=== PATIENT | female | born 1940 | race Caucasian/White ===

== ENCOUNTER 2020-05-15 14:37 | Outpatient (REF) | payer MEDICARE, SELFPAY ==
--- NOTE | 2020-05-15 | MM_ITS ---
EXAMINATION: MM SCREENING DIGITAL BREAST TOMOSYNTHESIS, BILATERAL CLINICAL INFORMATION: Screening. Asymptomatic. The lifetime risk of breast cancer based on the Tyrer-Cuzick Model is 3%. COMPARISON: Mammography: 01/07/2019, 12/18/2017, 12/11/2016 TECHNIQUE: Digital breast tomosynthesis is performed in both the craniocaudal and mediolateral oblique views along with computer-aided detection (CAD). Synthesized 2D images are generated from the tomosynthesis. FINDINGS: There are scattered areas of fibroglandular density (ACR BI-RADS breast composition Category b). There are no significant masses, abnormal calcifications, or other abnormalities. Parenchymal pattern is similar to prior studies. No developing density. There are scattered benign round calcifications. The skin contours are smooth. IMPRESSION: No significant changes from prior studies. ASSESSMENT: BI-RADS 1: Negative RECOMMENDATION: Routine annual mammography screening. This patient's information was entered into a reminder system with a target due date for their next mammogram.
== END 2020-05-15 14:38 | disposition home or self-care (01) ==
LOC: HO.MAMMO 14:37
PROVIDERS: PCP Internal Medicine; Visit Provider Internal Medicine
DX: Z12.31 Encounter for screening mammogram for malignant neoplasm of breast (principal)
CPT/HCPCS: 77063; 77067

== ENCOUNTER 2021-04-27 15:18 | Outpatient (REF) | payer MEDICARE, SELFPAY ==
[2021-04-27 16:31] LABS: Thyroid Stimulating Hormone 1.82 uIU/mL (0.32-4.0)
== END 2021-04-27 15:19 | disposition home or self-care (01) ==
LOC: HO.LNP 15:18
PROVIDERS: Visit Provider Internal Medicine
DX: R53.83 Other fatigue (principal)
CPT/HCPCS: 84443

== ENCOUNTER 2021-06-05 10:15 | Outpatient (REF) | payer MEDICARE, SELFPAY ==
[2021-06-05 10:20] LABS: MANUAL DIFF FLAG NO
[2021-06-05 10:58] LABS: Basophils Absolute Auto 0.1 X10*3/uL (0.0-0.2); Basophils Percent Auto 0.8 % (0-2); Eosinophils Absolute Auto 0.4 X10*3/uL (0.0-0.4); Eosinophils Percent Auto 6.1 % (0-4); Hematocrit 44.4 % (37.0-47.0); Hemoglobin 14.6 g/dl (12.0-16.0); Imm Gran Abs Auto 0.02 X10*3/uL (0.00-0.03); Imm Gran Pct Auto 0.3 % (0.0-0.4); Lymphocytes Absolute Auto 1.8 X10*3/uL (1.2-4.9); Mean Corpuscular HGB Conc 32.9 g/dl (31.0-35.0); Mean Corpuscular Volume 88.1 fL (80.0-98.0); Monocytes Absolute Auto 0.5 X10*3/uL (0.1-1.2); Monocytes Percent Auto 8.5 % (2-11); Neutrophils Percent Auto 56.3 % (45-73); Platelet Count 239 X10*3/uL (160-400); Red Blood Count 5.04 X10*6/uL (4.20-5.50); White Blood Count 6.4 X10*3/uL (4.8-10.8)
[2021-06-05 11:24] LABS: Appearance Urine HAZY; Color Urine YELLOW; Glucose Urine UA NEG (NEG); Leukocyte Esterase Urine 3+ (NEG); Nitrite Urine NEG (NEG); PH 6.5 (5.0-8.0); Urine Blood 1+ (NEG); Urine Ketones NEG (NEG); Urine Protein NEG (NEG-TRACE)
[2021-06-05 11:38] LABS: Alanine Aminotransferase 20 U/L (0-31); Albumin Level 4.1 g/dL (3.5-5.0); Alkaline Phosphatase 79 U/L (39-117); Anion Gap 12 (12-20); Aspartate Amino Transferase 27 U/L (5-31); Bilirubin Total 0.7 mg/dL (0.0-1.0); Blood Urea Nitrogen 20 mg/dL (9-16); Calcium 9.7 mg/dL (8.4-10.2); Carbon Dioxide 28 mmol/L (22-29); Chloride 107 mmol/L (96-108); Cholesterol 191 mg/dL; Estimated Glomerular Filt Rate > 60; Glucose Fasting 108 mg/dL (60-99); HDL Cholesterol 49 mg/dL; LDL Cholesterol Calculated 123 mg/dl; Sodium 142 mmol/L (135-145); Total Protein 6.6 g/dL (6.5-8.0); Triglycerides 95 mg/dL
[2021-06-05 11:52] LABS: Reflex LDLD? No
[2021-06-05 12:00] LABS: Renal Epithelial Cells Urine 1+ /LPF; Squamous Epithelial Cell Urine TRACE /LPF
[2021-06-05 12:01] LABS: Bacteria Urine TRACE /LPF; Vitamin D 25-OH Total 34.9 ng/mL (>30)
== END 2021-06-05 10:16 | disposition home or self-care (01) ==
LOC: HO.LNP 10:15
PROVIDERS: Visit Provider Internal Medicine
DX: E78.00 Pure hypercholesterolemia, unspecified (principal); E83.42 Hypomagnesemia; E55.9 Vitamin D deficiency, unspecified; R09.89 Other specified symptoms and signs involving the circulatory and respiratory systems; R79.89 Other specified abnormal findings of blood chemistry
CPT/HCPCS: 80053; 80061; 81001; 81003; 82306; 85025

== ENCOUNTER 2022-05-28 15:22 | Outpatient (REF) | payer MEDICARE, SELFPAY ==
[2022-05-28 15:50] LABS: Appearance Urine Turbid; Color Urine Yellow; Glucose Urine UA Negative (Negative); Leukocyte Esterase Urine Large (3+) (Negative); Nitrite Urine Positive (Negative); Specific Gravity - Urine 1.015 (1.005-1.025); UMIC TRIGGER UA YES; Urine Blood Large (3+) (Negative); Urine Ketones Negative (Negative); Urine Protein Trace mg/dL (Neg-Trace)
[2022-05-28 16:20] LABS: Bacteria Urine 4+ (None Seen); Hyaline Casts Urine 0-2 /LPF (0-2); Squamous Epithelial Cell Urine 0-2 /HPF (0-2); WBC Urine >50 /HPF (0-5)
== END 2022-05-28 15:23 | disposition home or self-care (01) ==
LOC: HO.LNP 15:22
PROVIDERS: Visit Provider Internal Medicine
DX: N30.00 Acute cystitis without hematuria (principal)
CPT/HCPCS: 81001; 87086

== ENCOUNTER 2022-06-11 10:36 | Outpatient (REF) | payer MEDICARE, SELFPAY ==
[2022-06-11 10:41] LABS: MANUAL DIFF FLAG NO
[2022-06-11 12:03] LABS: Basophils Absolute Auto 0.1 X10*3/uL (0.0-0.2); Eosinophils Absolute Auto 0.3 X10*3/uL (0.0-0.4); Eosinophils Percent Auto 4.7 % (0-4); Hematocrit 42.4 % (37.0-47.0); Hemoglobin 13.9 g/dl (12.0-16.0); Imm Gran Abs Auto 0.02 X10*3/uL (0.00-0.03); Imm Gran Pct Auto 0.3 % (0.0-0.4); Lymphocytes Absolute Auto 1.6 X10*3/uL (1.2-4.9); Lymphocytes Percent Auto 27.2 % (20-40); Mean Corpuscular HGB Conc 32.8 g/dl (31.0-35.0); Mean Corpuscular Hemoglobin 28.9 pg (27.0-33.0); Mean Corpuscular Volume 88.1 fL (80.0-98.0); Mean Platelet Volume 11.3 fL (9.4-12.3); Monocytes Absolute Auto 0.4 X10*3/uL (0.1-1.2); Monocytes Percent Auto 5.9 % (2-11); Neutrophils Absolute Auto 3.6 x10*3/uL (2.0-8.3); Neutrophils Percent Auto 60.9 % (45-73); Platelet Count 211 X10*3/uL (160-400); Red Blood Count 4.81 X10*6/uL (4.20-5.50); Red Cell Distribution Width 13.8 % (11.0-16.0); White Blood Count 5.9 X10*3/uL (4.8-10.8)
[2022-06-11 12:12] LABS: Appearance Urine Clear; Color Urine Yellow; Glucose Urine UA Negative (Negative); Leukocyte Esterase Urine Small (1+) (Negative); Nitrite Urine Negative (Negative); UMIC TRIGGER UA YES; Urine Blood Small (1+) (Negative); Urine Ketones Negative (Negative); Urine Protein Negative (Neg-Trace)
[2022-06-11 12:30] LABS: Estimated Average Glucose 126 mg/dL; Hemoglobin A1C 151.8079 umol/L
[2022-06-11 12:33] LABS: Vitamin D 25-OH Total 35.1 ng/mL (>30)
[2022-06-11 12:41] LABS: Alanine Aminotransferase 21 U/L (0-31); Albumin Level 3.9 g/dL (3.5-5.0); Alkaline Phosphatase 84 U/L (39-117); Anion Gap 14 (12-20); Aspartate Amino Transferase 25 U/L (5-31); Bilirubin Total 0.4 mg/dL (0.0-1.0); Blood Urea Nitrogen 18 mg/dL (9-16); Calcium 9.1 mg/dL (8.4-10.2); Carbon Dioxide 25 mmol/L (22-29); Chloride 107 mmol/L (96-108); Cholesterol 181 mg/dL; Estimated Glomerular Filt Rate > 60; Glucose Fasting 93 mg/dL (60-99); HDL Cholesterol 41 mg/dL; LDL Cholesterol Calculated 106 mg/dl; Potassium 3.9 mmol/L (3.3-5.1); Sodium 142 mmol/L (135-145); Total Protein 6.4 g/dL (6.5-8.0); Triglycerides 173 mg/dL
[2022-06-11 12:43] LABS: Bacteria Urine None Seen (None Seen); Hyaline Casts Urine 0-2 /LPF (0-2); RBC Urine 0-2 /HPF (0-2); Squamous Epithelial Cell Urine 0-2 /HPF (0-2); WBC Urine 0-5 /HPF (0-5)
== END 2022-06-11 10:37 | disposition home or self-care (01) ==
LOC: HO.LNP 10:36
PROVIDERS: Visit Provider Internal Medicine
DX: E78.00 Pure hypercholesterolemia, unspecified (principal); E55.9 Vitamin D deficiency, unspecified; E16.2 Hypoglycemia, unspecified; E83.42 Hypomagnesemia
CPT/HCPCS: 80053; 80061; 81001; 82306; 83036; 85025

== ENCOUNTER 2022-06-18 16:07 | Outpatient (REF) | payer MEDICARE, SELFPAY ==
[2022-06-18 16:23] LABS: Appearance Urine Clear; Color Urine Straw; Glucose Urine UA Negative (Negative); Leukocyte Esterase Urine Small (1+) (Negative); Nitrite Urine Negative (Negative); PH 6.5 (5.0-9.0); Specific Gravity - Urine 1.015 (1.005-1.025); UMIC TRIGGER UA YES; Urine Blood Trace (Negative); Urine Ketones Negative (Negative); Urine Protein Negative (Neg-Trace)
[2022-06-18 17:08] LABS: Squamous Epithelial Cell Urine 0-2 /HPF (0-2); WBC Urine 0-5 /HPF (0-5)
[2022-06-18 17:09] LABS: Bacteria Urine None Seen (None Seen); Hyaline Casts Urine 0-2 /LPF (0-2); WBC Clumps Urine Present
== END 2022-06-18 16:08 | disposition home or self-care (01) ==
LOC: HO.LNP 16:07
PROVIDERS: Visit Provider Internal Medicine
DX: Z51.89 Encounter for other specified aftercare (principal); N30.00 Acute cystitis without hematuria
CPT/HCPCS: 81001; 87086

== ENCOUNTER 2022-07-09 11:52 | Outpatient (REF) | payer MEDICARE, SELFPAY ==
--- NOTE | ~2022-07-09 | MM_ITS ---
EXAMINATION: MM SCREENING DIGITAL BREAST TOMOSYNTHESIS, BILATERAL CLINICAL INFORMATION: Screening. Asymptomatic. The lifetime risk of breast cancer based on the Tyrer-Cuzick Model is 2%. COMPARISON: Mammography: 05/15/2020, 01/07/2019, 12/18/2017 TECHNIQUE: Digital breast tomosynthesis is performed in both the craniocaudal and mediolateral oblique views along with computer-aided detection (CAD). Synthesized 2D images are generated from the tomosynthesis. FINDINGS: There are scattered areas of fibroglandular density (ACR BI-RADS breast composition Category b). There are no significant masses, abnormal calcifications, or other abnormalities. No significant changes from prior studies. No developing density or architectural abnormality. Scattered punctate and some coarse calcifications are again noted. MM/MM tomosynthesis screening BI IMPRESSION: No mammographic evidence of malignancy. ASSESSMENT: BI-RADS 2: Benign RECOMMENDATION: Routine annual mammography screening. This patient's information was entered into a reminder system with a target due date for their next mammogram.
== END 2022-07-09 11:53 | disposition home or self-care (01) ==
LOC: HO.MAMMO 11:52
PROVIDERS: Visit Provider Internal Medicine
DX: Z12.31 Encounter for screening mammogram for malignant neoplasm of breast (principal)
CPT/HCPCS: 77063; 77067

== ENCOUNTER 2022-07-12 12:01 | Outpatient (REF) | payer MEDICARE, SELFPAY ==
[2022-07-12 13:05] LABS: Appearance Urine Clear; Color Urine Yellow; Glucose Urine UA Negative (Negative); Leukocyte Esterase Urine Trace (Negative); Nitrite Urine Negative (Negative); PH 5.5 (5.0-9.0); Specific Gravity - Urine 1.015 (1.005-1.025); UMIC TRIGGER UA YES; Urine Blood Small (1+) (Negative); Urine Ketones Negative (Negative); Urine Protein Negative (Neg-Trace)
[2022-07-12 13:14] LABS: Bacteria Urine None Seen (None Seen); Hyaline Casts Urine 0-2 /LPF (0-2); Squamous Epithelial Cell Urine 0-2 /HPF (0-2); WBC Urine 0-5 /HPF (0-5)
== END 2022-07-12 12:02 | disposition home or self-care (01) ==
LOC: HO.LNP 12:01
PROVIDERS: Visit Provider Internal Medicine
DX: Z87.448 Personal history of other diseases of urinary system (principal)
CPT/HCPCS: 81001

== ENCOUNTER 2022-08-20 11:00 | Outpatient (REF) | payer MEDICARE, SELFPAY ==
[2022-08-20 11:28] LABS: Appearance Urine Clear; Color Urine Yellow; Glucose Urine UA Negative (Negative); Leukocyte Esterase Urine Small (1+) (Negative); Nitrite Urine Negative (Negative); PH 5.5 (5.0-9.0); Specific Gravity - Urine 1.015 (1.005-1.025); UMIC TRIGGER UACC YES; Urine Blood Small (1+) (Negative); Urine Ketones Negative (Negative); Urine Protein Negative (Neg-Trace)
[2022-08-20 11:45] LABS: Bacteria Urine None Seen (None Seen); Hyaline Casts Urine 0-2 /LPF (0-2); RBC Urine 0-2 /HPF (0-2); Squamous Epithelial Cell Urine 0-2 /HPF (0-2); UACC Culture Trigger YES; WBC Urine 0-5 /HPF (0-5)
== END 2022-08-20 11:01 | disposition home or self-care (01) ==
LOC: HO.LNP 11:00
PROVIDERS: Visit Provider Internal Medicine
DX: R31.9 Hematuria, unspecified (principal)
CPT/HCPCS: 81001; 87086

== ENCOUNTER 2022-11-25 06:21 | Day surgery (SDC) | payer MEDICARE, SELFPAY ==
[2022-11-20 14:52] VITALS: BMI 23.3
--- NOTE | 2022-11-21 15:48 | MHC.SHP ---
Pre-Procedural Eval Section A Date of Service: 11/21/22 The patient is an INPATIENT: No Changes since office visit: No Cold of Flu in the past 2 weeks, No New Medical Problems, No Changes in Medication and No Patient answered all questions The History & Physical has been completed within 30 days and I have reviewed it.: Yes Section B Chief Complaint: Age-related nuclear cataract, left eye Allergies: Allergies Allergy/AdvReac Type Severity Reaction Status Date / Time sulfamethoxazole AdvReac Severe Nausea and Verified 11/20/22 14:56 [From Bactrim] Vomiting trimethoprim [From Bactrim] AdvReac Severe Nausea and Verified 11/20/22 14:56 Vomiting shellfish Allergy Severe anaphylaxis Uncoded 11/20/22 14:56 Plan Diagnosis/Plan: Unchanged I have reviewed the history and physical and performed a pertinent physical examination on my patient. No changes have occurred unless specified. Time Spent With Patient Time: Total time managing care of this patient today ____ minutes.
[2022-11-25] MEDS: Tetracaine HCl/PF 0.5% Oph Sol 4 ML DROPS 1 DROP EYE-LEFT (06:59)
[2022-11-25] MEDS: Cyclopentolate 1 % Ophth Sol 2 ML DRPBTL 1 DROP EYE-LEFT ×3 (07:02→07:14)
[2022-11-25] MEDS: Tropicamide 1 % Ophth Sol 3 ML BTL 1 DROP EYE-LEFT ×3 (07:03→07:15)
[2022-11-25] MEDS: Ketorolac Tromethamine 0.5% Op 5 ML DROPS 1 DROP EYE-LEFT ×3 (07:05→07:16)
[2022-11-25] MEDS: Phenylephrine HCL 2.5% Oph SoL 2 ML BOTTLE 1 DROP EYE-LEFT ×3 (07:06→07:17)
[2022-11-25] MEDS: Lactated Ringers 500 ML 50 ML IV (07:09)
[2022-11-25 07:12] VITALS: BP 151/70; PULSE 68; RESP 16; TEMP 36.4; O2SAT 98
--- NOTE | 2022-11-25 07:48 | P.CONAN_ITS ---
HPI - Anesthesia Eval Consult details Narrative: Left eye cataract + IOL PMFSH Past Medical History Medical History Anxiety Cataract Essential tremor Hx of weakness Seasonal allergies Family History Family history of problems with anesthesia: No Surgical History Surgical History Hx of colonoscopy History of Problems with Anesthesia: No Social History Social History Are you a primary healthcare administrative assistant to a significant other at home: No Do you presently have visiting nurse or other home services: No Patient Tobacco Use Status: Never used Tobacco Use of substances other than those prescribed or required for medical reasons: No Have you been hit, kicked, punched, or otherwise hurt by someone within the past year? If so, by whom?: No Are you DNR?: No Advance Directives: No Advance Directives Information Provided: Yes Advance Directives on File: No Recently lost weight without trying: No Nutrition Risks: Surgical patient >75years Meds Allergies Allergy/AdvReac Type Severity Reaction Status Date / Time sulfamethoxazole AdvReac Severe Nausea and Verified 11/25/22 07:19 [From Bactrim] Vomiting trimethoprim [From Bactrim] AdvReac Severe Nausea and Verified 11/25/22 07:19 Vomiting shellfish Allergy Severe anaphylaxis Uncoded 11/20/22 14:56 Active Medications: Current Medications Lactated Ringer's (Lr) 500 mls @ 50 mls/hr IV .Q10H EVY Stop: 11/25/22 16:44 Last Admin: 11/25/22 07:09 Dose: 50 mls/hr Povidone Iodine (Povidone Iodine 5 % Ophth Soln 30 Ml Bottle) 1 appl EYE-LEFT PREOP PRN PRN Reason: Pre-Op Surgical Implant Prophy Home Medications Medication Instructions Recorded Confirmed Last Taken Type rdoxqbe-bchtaedsqhwcn-yseinivu 250 1 tab PO Q4-6H PRN Headache 11/20/22 11/20/22 Unknown History mg-250 mg-65 mg tablet (Excedrin Extra Strength) atorvastatin 20 mg tablet 10 mg PO DAILY 11/20/22 11/20/22 Unknown History cetirizine 10 mg capsule (Zyrtec) 10 mg PO DAILY PRN Allergy Symptoms 11/20/22 11/20/22 11/25/22 04:30 History diphenoxylate-atropine 2.5 1 tab PO BEDTIME PRN Diarrhea 11/20/22 11/20/22 Unknown History mg-0.025 mg tablet (Lomotil) ibuprofen 400 mg tablet 400 mg PO Q8H PRN Pain 11/20/22 11/20/22 Unknown History lorazepam 0.5 mg tablet 0.5 mg PO DAILY PRN Anxiety 11/20/22 11/20/22 Unknown History propranolol 60 mg capsule,24 60 mg PO DAILY 11/20/22 11/20/22 Unknown History hr,extended release Exam Exam Date and Time: November 25, 2022 0748 Height,Weight and Vital Signs: Height 5 ft 2 in Weight 58.06 kg Last Vital Signs Temp 97.5 F 11/25/22 07:12 Pulse 68 11/25/22 07:12 Resp 16 11/25/22 07:12 BP 151/70 H 11/25/22 07:12 Pulse Ox 98 11/25/22 07:12 O2 Del Method Room Air 11/25/22 07:12 Airway Mallampati Class: II TM Dist: >3cm Neck ROM: Full Loose/Missing/Broken Teeth: No Heart: rrr+s1s2 Lungs: cta b/l Assessment and Plan Assessment Anesthesia Assessment: Anesthesia Plan Discussed and Chart Reviewed Final Anesthetic Review Family History of Problems with Anesthesia: No History of Problems with Anesthesia: No NPO: Yes ASA Class: II Final Preanesthetic Review: No Changes in Pt Med Stat, Meds/Allgs Chart Reviewed, Consent Obtained/Reviewed and Anes Risks/Benef Reviewed Patient Risk: Intermediate Procedure Risk: Low Assessment/Block/Sedation in SS: Assess/Block/Sedation-SS Anesthetic Plan Anesthetic Plan: MAC: and Agree w/ Assess. and Plan Disposition: Standard PACU
--- NOTE | 2022-11-25 08:13 | HO.PNOPHT ---
Ophthalmology Procedure Procedure Date of Service: 11/25/22 Ophthalmology Viscoelastic: Healmayte Duet Dual Pack Pro Ophthalmology Lenses: TECJJ [id number] (19) Procedure Notes: PREOPERATIVE DIAGNOSIS: Decreased visual acuity left eye secondary to cataract POSTOPERATIVE DIAGNOSIS: Same PROCEDURE: Left cataract extraction with intraocular lens insertion SURGEON: Malcom Contreras M.D. ANESTHESIA: Topical/MAC ESTIMATED BLOOD LOSS: None COMPLICATIONS: None After obtaining informed consent, the patient was brought to the operation room suite and placed in the supine position. After adequate sedation per anesthesia, topical drops of Tetracaine were given to the left eye. The eye was then prepped and draped in the usual sterile fashion. The operating room microscope was then positioned over the operative eye and a lid speculum placed. A paracentesis was created. Viscoelastic was then instilled into the anterior chamber. A three plane incision was then created temporally, utilizing a 2.85 mm keratome. Capsulotomy forceps were then utilized to create a circular tear capsulotomy. Hydrodissection and hydrodelineation were carried out until adequate mobilization of the nucleus occurred. Phacoemulsification was then utilized to remove the dense central nucleus followed by removal of the cortical material utilizing the automated aspiration irrigation unit. Viscoat elastic was instilled into the posterior capsular bag followed by placement of a posterior chamber intraocular lens without difficulty. The residual Viscoat elastic was then removed utilizing the automated IA machine. The wound was check and found to be watertight. The patient tolerated the procedure well and the lid speculum was removed. Intracameral injection of Vigamox 0.1 mL followed by a subtenon injection of Kenalog-40 0.2 mL were administered. The patient will be seen in the a.m.
[2022-11-25 08:35] VITALS: BP 150/71; PULSE 62; RESP 16; TEMP 36.8; O2SAT 100
== END 2022-11-25 08:53 | disposition home or self-care (01) ==
PROVIDERS: PCP Internal Medicine; Visit Provider Ophthalmology
PROC: (CPT 66985; principal; 2022-11-25 08:20)
DX: H25.12 Age-related nuclear cataract, left eye (principal); H52.4 Presbyopia; H18.413 Arcus senilis, bilateral; H11.153 Pinguecula, bilateral; G25.0 Essential tremor; F41.9 Anxiety disorder, unspecified; E78.00 Pure hypercholesterolemia, unspecified; J30.2 Other seasonal allergic rhinitis; Z79.1 Long term (current) use of non-steroidal anti-inflammatories (NSAID); Z79.51 Long term (current) use of inhaled steroids; Z79.899 Other long term (current) drug therapy; Z88.2 Allergy status to sulfonamides
CPT/HCPCS: 66984; J2250; J3301; V2632

== ENCOUNTER 2022-12-09 07:10 | Day surgery (SDC) | payer MEDICARE, SELFPAY ==
[2022-11-20 15:02] VITALS: BMI 23.3
--- NOTE | 2022-12-06 12:56 | MHC.SHP ---
Pre-Procedural Eval Section A Date of Service: 12/06/22 The patient is an INPATIENT: No Changes since office visit: No Cold of Flu in the past 2 weeks, No New Medical Problems, No Changes in Medication and No Patient answered all questions The History & Physical has been completed within 30 days and I have reviewed it.: Yes Section B Chief Complaint: Age-related nuclear cataract, right eye Allergies: Allergies Allergy/AdvReac Type Severity Reaction Status Date / Time sulfamethoxazole AdvReac Severe Nausea and Verified 11/25/22 07:19 [From Bactrim] Vomiting trimethoprim [From Bactrim] AdvReac Severe Nausea and Verified 11/25/22 07:19 Vomiting shellfish Allergy Severe anaphylaxis Uncoded 11/20/22 14:56 Plan Diagnosis/Plan: Unchanged I have reviewed the history and physical and performed a pertinent physical examination on my patient. No changes have occurred unless specified. Time Spent With Patient Time: Total time managing care of this patient today ____ minutes.
[2022-12-09 08:04] VITALS: BP 143/76; PULSE 58; RESP 18; TEMP 36.7; O2SAT 100; BMI 23.4
--- NOTE | 2022-12-09 08:06 | P.CONAN_ITS ---
[facility] Past Medical History Medical History Anxiety Cataract Essential tremor Hx of weakness Seasonal allergies Family History Family history of problems with anesthesia: No Surgical History Surgical History Hx of colonoscopy History of Problems with Anesthesia: No Social History Social History Are you a primary health care liaison to a significant other at home: No Do you presently have visiting nurse or other home services: No Patient Tobacco Use Status: Never used Tobacco Use of substances other than those prescribed or required for medical reasons: No Have you been hit, kicked, punched, or otherwise hurt by someone within the past year? If so, by whom?: No Are you DNR?: No Advance Directives: No Advance Directives Information Provided: Yes Advance Directives on File: No Recently lost weight without trying: No Nutrition Risks: Surgical patient >75years Meds Allergies Allergy/AdvReac Type Severity Reaction Status Date / Time sulfamethoxazole AdvReac Severe Nausea and Verified 11/25/22 07:19 [From Bactrim] Vomiting trimethoprim [From Bactrim] AdvReac Severe Nausea and Verified 11/25/22 07:19 Vomiting shellfish Allergy Severe anaphylaxis Uncoded 11/20/22 14:56 Active Medications: Current Medications Cyclopentolate HCl (Cyclopentolate 1 % Ophth Tori 2 Ml Drpbtl) 1 drop EYE-RIGHT Q5M EVY Stop: 12/09/22 08:11 Lactated Ringer's (Lr) 500 mls @ 50 mls/hr IV .Q10H EVY Stop: 12/09/22 17:59 Ketorolac Tromethamine (Ketorolac Tromethamine 0.5% Op 5 Ml Drops) 1 drop EYE- RIGHT Q5M EVY Stop: 12/09/22 08:11 Phenylephrine HCl (Phenylephrine Hcl 2.5% Oph Tori 2 Ml Bottle) 1 drop EYE-RIGHT Q5M EVY Stop: 12/09/22 08:11 Povidone Iodine (Povidone Iodine 5 % Ophth Soln 30 Ml Bottle) 1 appl EYE-RIGHT PREOP PRN PRN Reason: Pre-Op Surgical Implant Prophy Tropicamide (Tropicamide 1 % Ophth Tori 3 Ml Btl) 1 drop EYE-RIGHT Q5M EVY Stop: 12/09/22 08:11 Home Medications Medication Instructions Recorded Confirmed Last Taken Type urvxzjt-gfrzoqhbhlhnw-lefgohlp 250 1 tab PO Q4-6H PRN Headache 11/20/22 12/09/22 Unknown History mg-250 mg-65 mg tablet (Excedrin Extra Strength) atorvastatin 20 mg tablet 10 mg PO DAILY 11/20/22 12/09/22 Unknown History cetirizine 10 mg capsule (Zyrtec) 10 mg PO DAILY PRN Allergy Symptoms 11/20/22 12/09/22 11/25/22 04:30 History diphenoxylate-atropine 2.5 1 tab PO BEDTIME PRN Diarrhea 11/20/22 12/09/22 Unknown History mg-0.025 mg tablet (Lomotil) ibuprofen 400 mg tablet 400 mg PO Q8H PRN Pain 11/20/22 12/09/22 Unknown History lorazepam 0.5 mg tablet 0.5 mg PO DAILY PRN Anxiety 11/20/22 12/09/22 Unknown History Exam Exam Date and Time: December 09, 2022 08 Height,Weight and Vital Signs: Height 5 ft 2 in Weight 58.06 kg Airway Mallampati Class: II TM Dist: >3cm Neck ROM: Full Loose/Missing/Broken Teeth: No Heart: RRR Lungs: CTA Assessment and Plan Assessment Anesthesia Assessment: Anesthesia Plan Discussed Final Anesthetic Review Family History of Problems with Anesthesia: No History of Problems with Anesthesia: No NPO: Yes ASA Class: II Final Preanesthetic Review: Meds/Allgs Chart Reviewed, Consent Obtained/Reviewed and Anes Risks/Benef Reviewed Patient Risk: Low Procedure Risk: Low Anesthetic Plan Anesthetic Plan: MAC: Disposition: Standard PACU
[2022-12-09 08:22] VITALS: BP 143/76; PULSE 57; RESP 18; TEMP 36.7; O2SAT 100
[2022-12-09] MEDS: Cyclopentolate 1 % Ophth Sol 2 ML DRPBTL 1 DROP EYE-RIGHT ×3 (08:23→08:29)
[2022-12-09] MEDS: Tetracaine HCl/PF 0.5% Oph Sol 4 ML DROPS 1 DROP EYE-RIGHT (08:23)
[2022-12-09] MEDS: Ketorolac Tromethamine 0.5% Op 5 ML DROPS 1 DROP EYE-RIGHT ×3 (08:24→08:30)
[2022-12-09] MEDS: Tropicamide 1 % Ophth Sol 3 ML BTL 1 DROP EYE-RIGHT ×3 (08:24→08:30)
[2022-12-09] MEDS: Phenylephrine HCL 2.5% Oph SoL 2 ML BOTTLE 1 DROP EYE-RIGHT ×3 (08:24→08:30)
[2022-12-09] MEDS: Lactated Ringers 500 ML 50 ML IV (08:32)
--- NOTE | 2022-12-09 09:23 | HO.PNOPHT ---
Ophthalmology Procedure Procedure Date of Service: 12/09/22 Ophthalmology Viscoelastic: Xander Mayt Dual Pack Pro Ophthalmology Lenses: TECJJ [id number] (21) Procedure Notes: PREOPERATIVE DIAGNOSIS: Decreased visual acuity right eye secondary to cataract POSTOPERATIVE DIAGNOSIS: Same PROCEDURE: Right cataract extraction with intraocular lens insertion SURGEON: Malcom Contreras M.D. ANESTHESIA: Topical/MAC ESTIMATED BLOOD LOSS: None COMPLICATIONS: None After obtaining informed consent, the patient was brought to the operating room suite and placed in the supine position. After adequate sedation per anesthesia, topical drops of Tetracaine were given to the right eye. The eye was then prepped and draped in the usual sterile fashion. The operating room microscope was then positioned over the operative eye and a lid speculum placed. A paracentesis was created. Viscoelastic was then instilled into the anterior chamber. A three plane incision was then created temporally, utilizing a 2.85 mm keratome. Capsulotomy forceps were then utilized to create a circular tear capsulotomy. Hydrodissection and hydrodelineation were carried out until adequate mobilization of the nucleus occurred. Phacoemulsification was then utilized to remove the dense central nucleus followed by removal of the cortical material utilizing the automated aspiration irrigation unit. Viscoelastic was instilled into the posterior capsular bag followed by placement of a posterior chamber intraocular lens without difficulty. The residual Viscoelastic was then removed utilizing the automated IA machine. The wound was checked and found to be watertight. The patient tolerated the procedure well and the lid speculum was removed. Intracameral injection of Vigamox 0.1 mL followed by a subtenon injection of Kenalog-40 0.2 mL were administered. The patient will be seen in the a.m.
[2022-12-09 09:49] VITALS: BP 137/64; PULSE 59; RESP 16; TEMP 36.6; O2SAT 99
== END 2022-12-09 09:58 | disposition home or self-care (01) ==
PROVIDERS: PCP Internal Medicine; Visit Provider Ophthalmology
PROC: (CPT 66985; principal; 2022-12-09 09:20)
DX: H25.11 Age-related nuclear cataract, right eye (principal); H52.4 Presbyopia; Z83.511 Family history of glaucoma; H18.413 Arcus senilis, bilateral; H11.153 Pinguecula, bilateral; G25.0 Essential tremor; E78.00 Pure hypercholesterolemia, unspecified; J30.2 Other seasonal allergic rhinitis; Z77.22 Contact with and (suspected) exposure to environmental tobacco smoke (acute) (chronic); F41.1 Generalized anxiety disorder; Z79.82 Long term (current) use of aspirin; Z79.899 Other long term (current) drug therapy; Z79.1 Long term (current) use of non-steroidal anti-inflammatories (NSAID); Z88.2 Allergy status to sulfonamides
CPT/HCPCS: 66984; J2250; J3301; V2632

== ENCOUNTER 2023-06-17 11:39 | Outpatient (REF) | payer MEDICARE, SELFPAY ==
[2023-06-17 11:42] LABS: MANUAL DIFF FLAG NO
[2023-06-17 12:16] LABS: Appearance Urine Clear; Color Urine Yellow; Glucose Urine UA Negative (Negative); Leukocyte Esterase Urine Trace (Negative); Nitrite Urine Negative (Negative); UMIC TRIGGER UACC YES; Urine Blood Negative (Negative); Urine Ketones Negative (Negative); Urine Protein Negative (Neg-Trace)
[2023-06-17 12:19] LABS: Basophils Absolute Auto 0.1 X10*3/uL (0.0-0.2); Basophils Percent Auto 0.7 % (0-2); Eosinophils Absolute Auto 0.3 X10*3/uL (0.0-0.4); Eosinophils Percent Auto 3.9 % (0-4); Hematocrit 43.8 % (37.0-47.0); Hemoglobin 14.5 g/dl (12.0-16.0); Imm Gran Abs Auto 0.02 X10*3/uL (0.00-0.03); Imm Gran Pct Auto 0.3 % (0.0-0.4); Lymphocytes Absolute Auto 1.7 X10*3/uL (1.2-4.9); Lymphocytes Percent Auto 24.8 % (20-40); Mean Corpuscular HGB Conc 33.1 g/dl (31.0-35.0); Mean Corpuscular Hemoglobin 28.8 pg (27.0-33.0); Mean Corpuscular Volume 86.9 fL (80.0-98.0); Mean Platelet Volume 11.8 fL (9.4-12.3); Monocytes Absolute Auto 0.5 X10*3/uL (0.1-1.2); Monocytes Percent Auto 7.3 % (2-11); Neutrophils Absolute Auto 4.2 x10*3/uL (2.0-8.3); Platelet Count 230 X10*3/uL (160-400); Red Blood Count 5.04 X10*6/uL (4.20-5.50); Red Cell Distribution Width 14.6 % (11.0-16.0); White Blood Count 6.7 X10*3/uL (4.8-10.8)
[2023-06-17 12:22] LABS: Bacteria Urine None Seen (None Seen); Hyaline Casts Urine 0-2 /LPF (0-2); RBC Urine 0-2 /HPF (0-2); Squamous Epithelial Cell Urine 0-2 /HPF (0-2); WBC Urine 0-5 /HPF (0-5)
[2023-06-17 12:43] LABS: Alanine Aminotransferase 15 U/L (0-31); Albumin Level 4.1 g/dL (3.5-5.0); Alkaline Phosphatase 78 U/L (39-117); Anion Gap 9 (12-20); Aspartate Amino Transferase 24 U/L (5-31); Bilirubin Total 0.8 mg/dL (0.0-1.0); Blood Urea Nitrogen 19 mg/dL (9-16); Calcium 9.8 mg/dL (8.4-10.2); Carbon Dioxide 28 mmol/L (22-29); Chloride 107 mmol/L (96-108); Cholesterol 184 mg/dL (<200); Estimated Glomerular Filt Rate > 60; Glucose Fasting 102 mg/dL (60-99); HDL Cholesterol 53 mg/dL (>40); LDL Cholesterol Calculated 112 mg/dL (<100); Potassium 3.7 mmol/L (3.3-5.1); Sodium 140 mmol/L (135-145); Total Protein 6.9 g/dL (6.5-8.0); Triglycerides 96 mg/dL (<150)
[2023-06-17 12:48] LABS: Vitamin D 25-OH Total 36.1 ng/mL (>30)
== END 2023-06-17 11:40 | disposition home or self-care (01) ==
LOC: HO.LNP 11:39
PROVIDERS: Visit Provider Internal Medicine
DX: E78.00 Pure hypercholesterolemia, unspecified (principal); E55.9 Vitamin D deficiency, unspecified
CPT/HCPCS: 80053; 80061; 81001; 81003; 82306; 85025

== ENCOUNTER 2023-09-12 12:50 | Outpatient (REF) | payer MEDICARE, SELFPAY ==
--- NOTE | ~2023-09-12 | MM_ITS ---
EXAMINATION: BONE DENSITOMETRY CLINICAL INDICATION: Osteopenia. COMPARISON: Previous BD dated 12/18/2017 and baseline BD dated 05/16/2015. TECHNIQUE: Using a [employer] DXA System (software version: 13.1) manufactured by [employer], dual-energy x-ray absorptiometry was performed of the lumbar spine and left hip. The images are of good technical quality. Summary results are attached. FINDINGS: LEFT FEMUR, NECK: Current: BMD 0.744 g/cm2, Z-score 0.2, T-score -2.1, osteopenia. Prior: BMD 0.797 g/cm2. Baseline: BMD 0.821 g/cm2. LEFT FEMUR, TOTAL: Current: BMD 0.866 g/cm2, Z-score 1.1, T-score -1.1, osteopenia, 3.9% decrease from previous, 4.9% decrease from baseline (<5% change is not significant). Prior: BMD 0.901 g/cm2. Baseline: BMD 0.911 g/cm2. AP SPINE L1-L4 (excluding L3): The data of L1-L4 has been changed to exclude the L3 vertebral body, because degenerative sclerosis at this level may cause overestimation of lumbar spine density. Current: BMD 0.961 g/cm2, Z-score 0.3, T-score -1.7, osteopenia, 8.0% decrease from previous, 2.2% decrease from baseline (<5% change is not significant). Prior: BMD 1.045 g/cm2. Baseline: BMD 0.983 g/cm2. IDENTIFIED RISK FACTORS: Menopause. HISTORY OF FRACTURE: None listed. MEDICATIONS: None listed. MM/XR DEXA axial skeleton IMPRESSION: 1. DIAGNOSIS: Osteopenia based on the lowest T-score value of -2.1 in the femoral neck applying World Health Organization criteria. 2. 10-YEAR FRACTURE RISK PREDICTION, FRAX: Major osteoporotic fracture (clinical spine, forearm, hip or shoulder) 16.4%. Hip fracture 5.3%. 3. Treatment Recommendations: NOF guidelines recommend consideration for treatment in postmenopausal women and men age 50 and older presenting with the following: -A hip or vertebral (clinical or morphometric) fracture. -T-score less than or equal to -2.5 at the femoral neck or spine after appropriate evaluation to exclude secondary causes. -Low bone mass at the hip or spine and a 10-year fracture probability by FRAX of greater than or equal to 3% for hip fracture or greater than or equal to 20% for major osteoporotic fracture based on the [place] adapted WHO algorithm. 4. Other Recommendations: All treatment decisions require clinical judgment and consideration of individual patient factors, including patient preferences, comorbidities, previous drug use, risk factors not captured in the FRAX model (e.g. frailty, falls, vitamin D deficiency, increased bone turnover, interval significant decline in bone density) and possible under or overestimation of fracture risk by FRAX. Additional medical evaluation for secondary cause of low bone mineral density may be appropriate. FUTURE SCAN RECOMMENDATION: People with diagnosed cases of osteoporosis or at high risk for fracture should have regular bone mineral density tests. For patients eligible for Medicare, routine testing is allowed once every 2 years. The testing frequency can be increased to one year for patients who have rapidly progressing disease, those who are receiving or discontinuing medical therapy to restore bone mass, or have additional risk factors.
== END 2023-09-12 12:51 | disposition home or self-care (01) ==
LOC: HO.MAMMO 12:50
PROVIDERS: PCP Internal Medicine; Visit Provider Internal Medicine
DX: Z12.31 Encounter for screening mammogram for malignant neoplasm of breast (principal); Z13.820 Encounter for screening for osteoporosis; Z78.0 Asymptomatic menopausal state; M85.80 Other specified disorders of bone density and structure, unspecified site
CPT/HCPCS: 77063; 77067; 77080

== ENCOUNTER → 2023-09-12 13:30 | Outpatient (BNV) | payer MEDICARE, SELFPAY | PROVIDERS: PCP Internal Medicine; Visit Provider Radiology Diagnostic Radiology | DX: Z12.31 Encounter for screening mammogram for malignant neoplasm of breast (principal) | CPT/HCPCS: 77063; 77067 ==

== ENCOUNTER 2023-12-22 11:06 | Outpatient (REF) | payer MEDICARE, SELFPAY ==
[2023-12-22 11:39] LABS: Alanine Aminotransferase 21 U/L (0-31); Albumin Level 4.3 g/dL (3.5-5.0); Alkaline Phosphatase 93 U/L (39-117); Aspartate Amino Transferase 26 U/L (5-31); Bilirubin Direct 0.3 mg/dL (0.0-0.5); Bilirubin Total 0.9 mg/dL (0.0-1.0); Cholesterol 197 mg/dL (<200); HDL Cholesterol 53 mg/dL (>40); LDL Cholesterol Calculated 125 mg/dL (<100); Total Protein 6.8 g/dL (6.5-8.0); Triglycerides 95 mg/dL (<150)
== END 2023-12-22 11:07 | disposition home or self-care (01) ==
LOC: HO.LNP 11:06
PROVIDERS: Visit Provider Internal Medicine
DX: E78.00 Pure hypercholesterolemia, unspecified (principal)
CPT/HCPCS: 80061; 80076

== ENCOUNTER 2024-05-24 13:15 | Outpatient (REF) | payer MEDICARE, SELFPAY ==
[2024-05-24 13:51] LABS: Appearance Urine Turbid; Color Urine Yellow; Glucose Urine UA Negative (Negative); Leukocyte Esterase Urine Large (3+) (Negative); Nitrite Urine Positive (Negative); PH 5.5 (5.0-9.0); Specific Gravity - Urine 1.015 (1.005-1.025); UMIC TRIGGER UACC YES; Urine Blood Large (3+) (Negative); Urine Ketones Negative (Negative); Urine Protein 30 (1+) mg/dL (Neg-Trace)
[2024-05-24 13:57] LABS: Bacteria Urine 4+ (None Seen); Hyaline Casts Urine 0-2 /LPF (0-2); RBC Urine >20 /HPF (0-2); UACC Culture Trigger YES; WBC Urine >50 /HPF (0-5)
== END 2024-05-24 13:16 | disposition home or self-care (01) ==
LOC: HO.LNP 13:15
PROVIDERS: Visit Provider Internal Medicine
DX: N39.0 Urinary tract infection, site not specified (principal)
CPT/HCPCS: 81001; 87086; 87088; 87186

== ENCOUNTER 2024-06-21 11:02 | Outpatient (REF) | payer MEDICARE, SELFPAY ==
[2024-06-21 11:06] LABS: MANUAL DIFF FLAG NO
[2024-06-21 11:12] LABS: Basophils Absolute Auto 0.1 X10*3/uL (0.0-0.2); Basophils Percent Auto 0.8 % (0-2); Eosinophils Absolute Auto 0.3 X10*3/uL (0.0-0.4); Hematocrit 45.4 % (37.0-47.0); Hemoglobin 14.7 g/dl (12.0-16.0); Imm Gran Abs Auto 0.01 X10*3/uL (0.00-0.03); Imm Gran Pct Auto 0.2 % (0.0-0.4); Lymphocytes Absolute Auto 2.1 X10*3/uL (1.2-4.9); Lymphocytes Percent Auto 31.7 % (20-40); Mean Corpuscular HGB Conc 32.4 g/dl (31.0-35.0); Mean Corpuscular Hemoglobin 28.7 pg (27.0-33.0); Mean Corpuscular Volume 88.7 fL (80.0-98.0); Mean Platelet Volume 11.8 fL (9.4-12.3); Monocytes Absolute Auto 0.5 X10*3/uL (0.1-1.2); Monocytes Percent Auto 7.9 % (2-11); Neutrophils Absolute Auto 3.5 x10*3/uL (2.0-8.3); Neutrophils Percent Auto 54.4 % (45-73); Platelet Count 231 X10*3/uL (160-400); Red Blood Count 5.12 X10*6/uL (4.20-5.50); Red Cell Distribution Width 14.6 % (11.0-16.0); White Blood Count 6.5 X10*3/uL (4.8-10.8)
[2024-06-21 11:13] LABS: Appearance Urine Clear; Color Urine Yellow; Glucose Urine UA Negative (Negative); Leukocyte Esterase Urine Small (1+) (Negative); Nitrite Urine Negative (Negative); PH 5.5 (5.0-9.0); UMIC TRIGGER UACC YES; Urine Blood Small (1+) (Negative); Urine Ketones Negative (Negative); Urine Protein Negative (Neg-Trace)
[2024-06-21 11:20] LABS: Bacteria Urine None Seen (None Seen); Hyaline Casts Urine 0-2 /LPF (0-2); Squamous Epithelial Cell Urine 0-2 /HPF (0-2); UACC Culture Trigger YES; WBC Urine 0-5 /HPF (0-5)
[2024-06-21 11:37] LABS: Alanine Aminotransferase 27 U/L (0-31); Alkaline Phosphatase 85 U/L (39-117); Anion Gap 10 (12-20); Aspartate Amino Transferase 31 U/L (5-31); Bilirubin Total 0.7 mg/dL (0.0-1.0); Blood Urea Nitrogen 28 mg/dL (9-16); Calcium 9.9 mg/dL (8.4-10.2); Carbon Dioxide 29 mmol/L (22-29); Chloride 109 mmol/L (96-108); Cholesterol 206 mg/dL (<200); Estimated Glomerular Filt Rate > 60; Glucose Fasting 112 mg/dL (60-99); HDL Cholesterol 55 mg/dL (>40); LDL Cholesterol Calculated 136 mg/dL (<100); Potassium 4.5 mmol/L (3.3-5.1); Sodium 143 mmol/L (135-145); Total Protein 6.8 g/dL (6.5-8.0); Triglycerides 78 mg/dL (<150)
[2024-06-21 11:54] LABS: Vitamin D 25-OH Total 33.8 ng/mL (>30)
== END 2024-06-21 11:03 | disposition home or self-care (01) ==
LOC: HO.LNP 11:02
PROVIDERS: Visit Provider Internal Medicine
DX: E78.00 Pure hypercholesterolemia, unspecified (principal); E55.9 Vitamin D deficiency, unspecified; E78.2 Mixed hyperlipidemia
CPT/HCPCS: 80053; 80061; 81001; 82306; 85025; 87086

== ENCOUNTER 2024-07-30 15:08 | Outpatient (REF) | payer MEDICARE, SELFPAY ==
--- OUTSIDE RECORDS SUMMARY | 2024-07-30 15:10 | XMS_ITS ---
Author Organization Mushtaq Katz MD Address [address] [place] [phone] Care Team Providers Care Piano Professor Name Role Phone Mushtaq Katz Primary Care Provider REASON FOR VISIT BUN, CREATININE Encounters Encounter Location Date Provider Diagnosis Mushtaq Katz MD [address] [facility] [address] [place] [phone] 07/30/2024 Mushtaq Katz Anxiety F41.9 ASSESSMENTS Encounter Date Diagnosis Assessment Notes Treatment Notes Treatment Clinical Notes 07/30/2024 Anxiety (ICD-10 - F41.9) PLAN OF TREATMENT Pending Test Test Name Order Date Blood Urea Nitrogen 07/30/2024 Creatinine 07/30/2024 Next Appt Details Provider Name:Mushtaq jimenez, 11/30/2024 09:00:00 AM, [address] [place] [address], [address], [phone], Provider Name:Mushtaq jimenez, 12/06/2024 11:00:00 AM, [address] [place] [address], [address], [phone], Provider Name:Mushtaq jimenez, 06/27/2025 09:00:00 AM, [address] [facility], [address], [place], [phone], Provider Name:Mushtaq jimenez, 07/04/2025 01:00:00 PM, [address] [facility], [address], [place], [phone],
--- OUTSIDE RECORDS SUMMARY | 2024-07-30 15:10 | XMS_ITS ---
Author Organization Mushtaq Katz MD Address [address] [place], [place] [phone] Care Team Providers Care Mine Supervisor Name Role Phone Mushtaq Katz Primary Care Provider REASON FOR VISIT CHOLESTEROL MED MEDICATIONS Medication SIG (Take, Route, Frequency, Duration) Notes Start Date End Date Status Excedrin Extra Strength 250-250-65 MG 2 tablets Orally Once a day for 30 day(s) Not-Taking Vitamin D3 400 UNIT 1 tablet Orally Once a day for 30 day(s) Not-Taking ProAir RespiClick 108 (90 Base) MCG/ACT 1 puff as needed Inhalation every 4 hrs for 30 days 08/27/2016 Not-Taking Vitamin D (Cholecalciferol) 1000 UNIT 2 tablets Orally Once a day for 30 day(s) 12/09/2017 Not-Taking metroNIDAZOLE 0.75 % 1 application to affected area Externally Twice a day 11/06/2015 Not-Takin g Lomotil 2.5-0.025 MG 1 tablet as needed Orally daily as needed for 90 days 03/19/2024 Active Cephalexin 500 MG 1 tablet Orally twic e a day for 7 days 05/27/2024 Active LORazepam 0.5 MG 1 ablet Orally Once a day as needed for 30 days 06/25/2024 Active Rosuvastatin Calcium 10 MG 1 tablet Orally Once a day for 90 days 12/30/2023 Active Ibuprofen 400 MG take 1 tablet by will th as needed every 8 hours Orally Three times a day for 30 days Active Atorvastatin Calcium 10 MG 1 tablet Orally Once a day for 30 days 07/19/2024 Active Flovent HFA 110 MCG/ACT 1 puff Inhalatio n Twice a day for 30 days 12/31/2012 Not-Taking Encounters Encounter Location Date Provider Diagnosis Mushtaq Katz MD [address] [place] [address] [place] [phone] 07/19/2024 Mushtaq Katz PLAN OF TREATMENT Medication Medication Name Sig Start Date Stop Date Notes Atorvastatin Calcium 10 MG 1 tablet Oral ly Once a day for 30 days 07/19/2024 Next Appt Details Provider Name:Mushtaq jimenez, 11/30/2024 09:00:00 AM, [address] [place] [address], [place] [address], [place], [phone], Provider Name:Mushtaq jimenez, 12/06/2024 11:00:00 AM, [address] [place] [address], [place] [address], [place], [phone], Provider Name:Mushtaq jimenez, 06/27/2025 09:00:00 AM, [address] [place] [address], [address] [place], [phone], Provider Name:Mushtaq jimenez, 07/04/2025 01:00:00 PM, [address] [place] [address], [place] [address], [place], [phone],
--- OUTSIDE RECORDS SUMMARY | 2024-07-30 15:11 | XMS_ITS | Patient Health Record ---
Author Organization Mushtaq Katz MD Address [address] [place] [phone] Care Team Providers Care Behavioral Health Consultant Name Role Phone Mushtaq Katz Primary Care Provider ALLERGIES Allergen (clinical drug ingredient) Drug/Non Drug Allergy documented on EMR Reaction Allergy Type Onset Date Status sulfamethoxazole / trimethoprim Bactrim GI upset Drug Allergy Active Shellfish (FN) shrimp (uncoded) throat swelling Allergy Active RESULTS Component Value Reference Range Notes MM tomosynthesis screening B I Reviewed date:10/06/2023 04:51:47 PM Interpretation: Performing Lab: Notes/Report: [address] [place] [address] Mammography Report Signed Patient: Ros Garrett MR#: [id number] 147 : 1940 Acct:[id number] Age/Sex: 83 / F ADM Date: 09/12/23 Loc: HO.MAMMO Attending Dr: Mushtaq Katz MD Ordering Physician: Mushtaq Katz MD Results: 1Ne gative Date of Service: 09/12/23 Follow Up: 1 Year From Orig inal Mammogram Procedure(s): MM tomosynthesis screening BI Accession Number(s): [id number] cc: Mushtaq Katz MD EXAMINATION: MM SCREENING DIGITAL BREAST TOMOSYNTHESIS, BILATERAL CLINICAL INFORMATION: Screening. Asymptomatic. COMPARISON: Mammography: This study is compared with prior exams dating back to 2019. TECHNIQUE: Digital breast tomosynthesis is performed in both the craniocaudal and mediolateral oblique views along with computer-aided detection (CAD). Synthesized 2D images are generated from the tomosynthesis. FINDINGS: There are scattered areas of fibroglandular density (ACR BI-RADS breast composition Category b). There are no significant masses, abnormal calcifications, or other abnormalities. MM/MM tomosynthesis screening BI IMPRESSION: No mammographic evidence of malignancy. ASSESSMENT: BI-RADS BI-RADS 1 - Negative RECOMMENDATION: Routine annual mammography screening. 1 year F/U This examination should not preclude the clinical evaluation of a suspicious palpable abnormality. This patient's information was entered into a reminder system with a target due date for their next mammogram. 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 [address] Mammography Report Signed Patient: Ros Garrett MR#: [id number] 147 : 1940 Acct:[id number] Age/Sex: 83 / F ADM Date: 09/12/23 Loc: DEISYO Attending Dr: Mushtaq Katz MD Ordering Physician: Mushtaq Katz MD Results: Date of Service: 09/12/23 Follow Up: Procedure(s): XR DEXA axial skeleton Accession Number(s): [id number] cc: Mushtaq Katz MD EXAMINATION: BONE DENSITOMETRY CLINICAL INDICATION: Osteopenia. COMPARISON: Previous BD dated 12/18/2017 and baseline BD dated 05/16/2015. TECHNIQUE: Using a TraceWorks DXA System (software version: 13.1) manufactured by [employer], dual-energy x-ray absorptiometry was performed of the lumbar spine and left hip. The images are of good technical quality. Summary results are attached. FINDINGS: LEFT FEMUR, NECK: Current: BMD 0.744 g/cm2, Z-score 0.2, T-score -2.1, osteopenia. Prior: BMD 0.797 g/cm2. Baseline: BMD 0.821 g/cm2. LEFT FEMUR, TOTAL: Current: BMD 0.866 g/cm2, Z-score 1.1, T-score -1.1, osteopenia, 3.9% decrease from previous, 4.9% decrease from baseline (<5% change is not significant). Prior: BMD 0.901 g/cm2. Baseline: BMD 0.911 g/cm2. AP SPINE L1-L4 (excluding L3): The data of L1-L4 has been changed to exclude the L3 vertebral body, because degenerative sclerosis at this level may cause overestimation of lumbar spine density. Current: BMD 0.961 g/cm2, Z-score 0.3, T-score -1.7, osteopenia, 8.0% decrease from previous, 2.2% decrease from baseline (<5% change is not significant). Prior: BMD 1.045 g/cm2. Baseline: BMD 0.983 g/cm2. IDENTIFIED RISK FACTORS: Menopause. HISTORY OF FRACTURE: None listed. MEDICATIONS: None listed. MM/XR DEXA axial skeleton IMPRESSION: 1. DIAGNOSIS: Osteopenia based on the lowest T-score value of -2.1 in the femoral neck applying World Health Organization criteria. 2. 10-YEAR FRACTURE RISK PREDICTION, FRAX: Major osteoporotic fracture (clinical spine, forearm, hip or shoulder) 16.4%. Hip fracture 5.3%. 3. Treatment Recommendations: NOF guidelines recommend consideration for treatment in postmenopausal women and men age 50 and older presenting with the following: -A hip or vertebral (clinical or morphometric) fracture. -T-score less than or equal to -2.5 at the femoral neck or spine after appropriate evaluation to exclude secondary causes. -Low bone mass at the hip or spine and a 10-year fracture probability by FRAX of greater than or equal to 3% for hip fracture or greater than or equal to 20% for major osteoporotic fracture based on the [place] adapted WHO algorithm. 4. Other Recommendations: All treatment decisions require clinical judgment and consideration of individual patient factors, including patient preferences, comorbidities, previous drug use, risk factors not captured in the FRAX model (e.g. frailty, falls, vitamin D deficiency, increased bone turnover, interval significant decline in bone density) and possible under or overestimation of fracture risk by FRAX. Additional medical evaluation for secondary cause of low bone mineral density may be appropriate. FUTURE SCAN RECOMMENDATION: People with diagnosed cases of osteoporosis or at high risk for fracture should have regular bone mineral density tests. For patients eligible for Medicare, routine testing is allowed once every 2 years. The testing frequency can be increased to one year for patients who have rapidly progressing disease, those who are receiving or discontinuing medical therapy to restore bone mass, or have additional risk factors. Dictated By: Pancho Reyes MD Signed By: <Electronically signed by Pancho Reyes MD in OV> 09/17/23 1302 DD/ 1345 TD/TT: Poultry Husbandry Worker: ARNIE Liver Panel Reviewed date:12/22/2023 12:44:47 PM Interpretation: Performing Lab:[facility], [address] [place] [phone] Notes/Report: Bilirubin Total 0.9 0.0-1.0 mg/dL Bilirubin Direct 0.3 0.0-0.5 mg/dL Aspartate Amino Transferase 26 5-31 U/L Alanine Aminotransferase 21 0-31 U/L Total Protein 6.8 6.5-8.0 g/dL Albumin Level 4.3 3.5-5.0 g/dL Alkaline Phosphatase 93 39-117 U/L Lipid Panel Reviewed date:12/22/2023 12:37:23 PM Interpretation: Performing Lab:[facility], [address] [place] [phone] Notes/Report: Triglycerides 95 <150 mg/dL Desirable Triglyceride: less than 150 mg/dL Borderline High Triglyceride 150-199 mg/dL High Triglyceride: 200-499 mg/dL Very High Triglyceride: greater than or equal to 5OO mg/dL Cholesterol 197 <200 mg/dL Desirable Cholesterol: less than 200 mg/dL Borderline High Cholesterol: 200-239 mg/dL High Cholesterol: greater than 239 mg/dL LDL Cholesterol Calculated 125 <100 mg/dL Desirable LDL: less than 100 mg/dL Near Optimal/Above Optimal LDL: 110-129 mg/dL Borderline High LDL: 130-159 mg/dL High LDL: 160-189 mg/dL Very High LDL: greater than or equal to 190 mg/dL HDL Cholesterol 53 >40 mg/dL Desirable HDL: greater than 40 mg/dL Note: This HDL assay may give artificially low results in patients with liver disease. Urine Culture Reviewed date:05/27/2024 12:45:25 PM Interpretation: Performing Lab:[address] [phone] Notes/Report: O:ESCCOL Escherichia coli Urine Culture Quant Urine Culture > 100,000 cfu/mL O:KLEPNE Klebsiella pneumoniae Urine Culture Quant Urine Culture 50,000 to 100,000 cfu/mL Ampicillin 4 Cefazolin <=4 Ceftriaxone <=0.25 Ciprofloxacin <=0.25 Gentamicin <=1 Nitrofurantoin <=16 Trimethoprim/Sulfamethox azole <=20 Ampicillin 16 Cefazolin <=4 Ceftriaxone <=0.25 Ciprofloxacin <=0.25 Gentamicin <=1 Nitrofurantoin 64 Trimethoprim/Sulfamethox azole <=20 UA ClnCatch+Micro w/rflx Cul t Reviewed date:05/27/2024 10:38:34 AM Interpretation: Performing Lab:[address] [phone] Notes/Report: Urine, Clean Catch Color Urine Yellow Appearance Urine Turbid PH 5.5 5.0-9.0 Glucose Urine UA Negative Negative mg/dL Urine Blood Large (3+) Negative Specific [place] - Urine 1.015 1.005-1.025 Urine Protein 30 (1+) Neg-Trace mg/dL Urine Ketones Negative Negative mg/dL Nitrite Urine Positive Negative Leukocyte Esterase Urine Large (3+) Negative RBC Urine >20 0-2 /HPF WBC Urine >50 0-5 /HPF Squamous Epithelial Cell Urine 3-5 0-2 /HPF Bacteria Urine 4+ None Seen Hyaline Casts Urine 0-2 0-2 /LPF Urine Culture Reviewed date:06/22/2024 08:14:16 PM Interpretation: Performing Lab:[address] [place] [phone] Notes/Report: Urine Culture Report Result Urine Culture 10,000 to 50,000 cfu/ml Urine Culture Mixed bacterial miguel angel a characteristic of Urine Culture urogenital contamination. Complete Blood Count Auto Di ff Reviewed date:06/21/2024 12:38:29 PM Interpretation: Performing Lab:[facility], [address] [place] [phone] Notes/Report: White Blood Count 6.5 4.8-10.8 X10*3/uL Red Blood Count 5.12 4.20-5.50 X10*6/uL Hemoglobin 14.7 12.0-16.0 g/dl Hematocrit 45.4 37.0-47.0 % Mean Corpuscular Volume 88.7 80.0-98.0 fL Mean Corpuscular Hemoglobin 28.7 27.0-33.0 pg Mean Corpuscular HGB Conc 32.4 31.0-35.0 g/dl Red Cell Distribution Width 14.6 11.0-16.0 % Platelet Count 231 160-400 X10*3/uL Mean Platelet Volume 11.8 9.4-12.3 fL Neutrophils Percent Auto 54.4 45-73 % Imm Gran Pct Auto 0.2 0.0-0.4 % Lymphocytes Percent Auto 31.7 20-40 % Monocytes Percent Auto 7.9 2-11 % Eosinophils Percent Auto 5.0 0-4 % Basophils Percent Auto 0.8 0-2 % NRBC Pct Auto 0.0 0.0-0.2 /100WBC Neutrophils Absolute Auto 3.5 2.0-8.3 x10*3/uL Imm Gran Abs Auto 0.01 0.00-0.03 X10*3/uL Lymphocytes Absolute Auto 2.1 1.2-4.9 X10*3/uL Monocytes Absolute Auto 0.5 0.1-1.2 X10*3/uL Eosinophils Absolute Auto 0.3 0.0-0.4 X10*3/uL Basophils Absolute Auto 0.1 0.0-0.2 X10*3/uL NRBC Abs Auto 0.000 0.0-0.012 X10*3/uL Comprehensive [place]. Panel Fa st Reviewed date:06/28/2024 03:56:30 PM Interpretation:CBACK 06/28 BUN Performing Lab:[facility], [address] [place] [phone] Notes/Report: Sodium 143 135-145 mmol/L Potassium 4.5 3.3-5.1 mmol/L Chloride 109 96-108 mmol/L Carbon Dioxide 29 22-29 mmol/L Anion Gap 10 12-20 Blood Urea Nitrogen 28 9-16 mg/dL Creatinine 0.72 0.5-1.4 mg/dL Estimated Glomerular Filt Rate > 60 Chronic Kidney Disease: Estimated GFR < 60 mL/min/1.73m2 Severe Kidney Disease: Estimated GFR < 15 mL/min/1.73m2 Glucose Fasting 112 60-99 mg/dL A fasting glucose from 100-125 mg/dl is considered impaired (pre-diabetes). Calcium 9.9 8.4-10.2 mg/dL Bilirubin Total 0.7 0.0-1.0 mg/dL Aspartate Amino Transferase 31 5-31 U/L Alanine Aminotransferase 27 0-31 U/L Total Protein 6.8 6.5-8.0 g/dL Albumin Level 4.0 3.5-5.0 g/dL Alkaline Phosphatase 85 39-117 U/L Lipid Panel Reviewed date:06/21/2024 12:38:11 PM Interpretation: Performing Lab:[facility], [address] [place] [phone] Notes/Report: Triglycerides 78 <150 mg/dL Desirable Triglyceride: less than 150 mg/dL Borderline High Triglyceride 150-199 mg/dL High Triglyceride: 200-499 mg/dL Very High Triglyceride: greater than or equal to 5OO mg/dL Cholesterol 206 <200 mg/dL Desirable Cholesterol: less than 200 mg/dL Borderline High Cholesterol: 200-239 mg/dL High Cholesterol: greater than 239 mg/dL LDL Cholesterol Calculated 136 <100 mg/dL Desirable LDL: less than 100 mg/dL Near Optimal/Above Optimal LDL: 110-129 mg/dL Borderline High LDL: 130-159 mg/dL High LDL: 160-189 mg/dL Very High LDL: greater than or equal to 190 mg/dL HDL Cholesterol 55 >40 mg/dL Desirable HDL: greater than 40 mg/dL Note: This HDL assay may give artificially low results in patients with liver disease. Vitamin D 25-OH Total Reviewed date:06/21/2024 12:45:29 PM Interpretation: Performing Lab:[facility], [address] [place] [phone] Notes/Report: Vitamin D 25-OH Total 33.8 >30 ng/mL Health Based Reference Values* < 20 ng/mL Deficient 20-30 ng/mL Insufficient > 30 ng/mL Sufficient *Gaby TORRES. N Engl J Med. 2007;357:266-280 Care must be taken in interpreting Vitamin D results from different laboratories and methodologies. Published data demonstrated that results from patients undergoing hemodialysis may show a negative bias when tested with various automated 25-OH vitamin D assays when compared to LC-MS/MS. When testing samples from patients whose predominant form of Vitamin D is Vitamin D2, such as patients receiving Vitamin D2 supplementation, results that are subtherapeutic should be confirmed with another method such as LC-MS/MS. UA ClnCatch+Micro w/rflx Cul t Reviewed date:06/21/2024 12:46:16 PM Interpretation: Performing Lab:[facility], [address] [place] [phone] Notes/Report: Urine, Clean Catch Color Urine Yellow Appearance Urine Clear PH 5.5 5.0-9.0 Glucose Urine UA Negative Negative mg/dL Urine Blood Small (1+) Negative Specific [place] - Urine 1.020 1.005-1.025 Urine Protein Negative Neg-Trace mg/dL Urine Ketones Negative Negative mg/dL Nitrite Urine Negative Negative Leukocyte Esterase Urine Small (1+) Negative RBC Urine 3-5 0-2 /HPF WBC Urine 0-5 0-5 /HPF Squamous Epithelial Cell Urine 0-2 0-2 /HPF Bacteria Urine None Seen None Seen Hyaline Casts Urine 0-2 0-2 /LPF REASON FOR REFERRAL Reason please pascual and renetta t Diagnosis 1 History of hematuria (Z87.448) Diagnosis 2 Family history of bl adder cancer (Z80.52) Diagnosis 3 UTI (urinary tract i nfection) (N39.0) Referral Organization Mushtaq Katz MD Referring Provider First Name Mushtaq Referring Provider Last Name Gianna Referring Provider Speciality Internal M edicine Referred Provider HARSH ASENCIO Referred Provider Specialty Urology General Notes Maricarmen Christine 1 10:35:21 referral info faxed to [facility] for an appt, Maricarmen Christine 06/04/2024 10:04:47 AM > referral mailed to patient Referral Priority Routine Referral Appointment Date 06/23/2024 MEDICATIONS Medication SIG (Take, Route, Frequency, Duration) Notes Start Date End Date Status LORazepam 0.5 MG 1 ablet Orally Once a day as needed for 30 days 06/25/2024 Active Rosuvastatin Calcium 10 MG 1 tablet Orally Once a day for 90 days 12/30/2023 Active Lomotil 2.5-0.025 MG 1 tablet as needed Orally daily as needed for 90 days 03/19/2024 Active Vitamin D3 400 UNIT 1 tablet Orally Once a day for 30 day(s) Not-Taking ProAir RespiClick 108 (90 Base) MCG/ACT 1 puff as needed Inhalation every 4 hrs for 30 days 08/27/2016 Not-Taking Atorvastatin Calcium 10 MG 1 tablet Orally Once a day for 30 days 07/19/2024 Active Excedrin Extra Strength 250-250-65 MG 2 tablets Orally Once a day for 30 day(s) Not-Taking metroNIDAZOLE 0.75 % 1 application to affected area Externally Twice a day 11/06/2015 Not-Takin g Ibuprofen 400 MG take 1 tablet by will th as needed every 8 hours Orally Three times a day for 30 days Active Flovent HFA 110 MCG/ACT 1 puff Inhalatio n Twice a day for 30 days 12/31/2012 Not-Taking Cephalexin 500 MG 1 capsule Orally derrick ry 8 hrs for 7 days 07/30/2024 Active Vitamin D (Cholecalciferol) 1000 UNIT 2 tablets Orally Once a day for 30 day(s) 12/09/2017 Not-Taking IMMUNIZATIONS Vaccine Route Administration Date Status Comme nts PPSV23 (Pnemovax) IM Intramuscular 08/31/2012 Administered Flu Vaccine IM Intramuscular 05/03/2013 Administered Prevnar 13 IM Intramuscular 10/18/2013 Administered Fluarix Quadrivalent IM Intramuscular 04/18/2014 Administe red Fluarix Quadrivalent IM Intramuscular 05/01/2015 Administe red PPSV23 (Pnemovax) IM Intramuscular 12/01/2017 Administered Fluarix Quadrivalent IM Intramuscular 06/08/2018 Administe red Fluarix Quadrivalent IM Intramuscular 06/08/2019 Administe red Influenza High Dose Unknown 05/20/2020 Administered Trever griffin's Covid Vaccine Unknown 09/07/2020 Administered Covid Vaccine Unknown 09/28/2020 Administered Fluarix Quadrivalent IM Intramuscular 04/27/2021 Administfigueroa klein SARS-COV-2 Pfizer Unknown 08/24/2021 Administered Influenza High Dose IM Intramuscular 06/11/2022 Administer ed Influenza High Dose IM Intramuscular 06/17/2023 Administer ed Influenza High Dose IM Intramuscular 06/21/2024 Administer ed Fluarix Quadrivalent Unknown 08/27/2016 Refused Shingrix Unknown 12/09/2017 Refused Flu Vaccine Unknown 04/18/2014 Pending SOCIAL HISTORY Tobacco Use: Social History Observation Description Date Details (start date - stop date) Never Smoker NA - NA Sex Assigned At : Social History Observation Description Sex Assigned At Unknown Tobacco Use/Smoking Question Answer Notes Patient is a nonsmoker Additional Findings: Tobacco Non-User Cu rrent non-smoker, currently using no form of tobacco Alcohol Screen Question Answer Notes Did you have a drink containing alcohol in the p ast year? No Points 0 Interpretation Negative PROBLEMS Problem Type ICD Code Onset Dates Problem Status W/U Status Risk SNOMED Code Notes Problem Pure hypercholesterolemia (E78.0) Active confirmed Pure hypercholesterolemia (704668995) Problem UTI (urinary tract infection) (N39.0) Active confirmed Urinary t ract infectious disease (92365089) Problem Vitamin D deficiency (E55.9) Active confirmed 96955343 Problem Anxiety (F41.9) Active confirmed 743121 02 Problem Hypomagnesemia (E83.42) Active confirmed 945141946 Problem Essential tremor (G25.0) Active confirmed Essential tremo r (615560265) Problem Other specified menopausal and perimenopausal disorders (N95.8) Active confirmed 746152667 Problem History of persisten t cough (Z87.09) Active confirmed 124906252 Problem Memory loss (R41.3) Active confirmed 38 3676976 Problem History of hematuria (Z87.448) Active confirmed 294351048 Problem Elevated cholesterol with elevated triglycerides (E78.2) Active confirmed 320319384 Problem Hypoglycemia (E16.2) Active confirmed 3 25061812 Problem Dysthymia (F34.1) Active confirmed 7866 7006 Problem Family history of bladder cancer (Z80.52) Active confirmed 824764632 Problem Pure hypercholesterolemia (E78.00) Active confirmed 652577028 Problem Polyp of ascending colon, unspecified type (D12.2) Active confirmed 683664131 Problem Osteopenia determine d by x-ray (M85.80) Active confirmed 887082323 Problem Mild cognitive impairment with memory loss (G31.84) Active confirmed 122668539 VITAL SIGNS Blood pressure diastolic 70 mm Hg 07/30/2024 Height 62 in 07/30/2024 Blood pressure systolic 142 mm Hg 07/30/2024 Weight 128 lbs 07/30/2024 BMI 23.41 kg/m2 07/30/2024 Encounters Encounter Location Date Provider Diagnosis Mushtaq Katz MD [address] [place] [id number] 06/28/2024 Mushtaq Katz History of hematuria Z87.448 ; Elevated BUN R79.9 ; Anxiety F41.9 ; Vitamin D deficiency E55.9 and Pure hypercholesterolemia E78.00 Mushtaq Katz MD [address] [place] [address] [id number] 12/22/2023 Mushtaq Katz Pure hypercholestero lemia E78.00 Mushtaq Katz MD [address] [place] [id number] 06/21/2024 Mushtaq Katz Pure hypercholestero lemia E78.00 ; Encounter for immunization Z23 ; Vitamin D deficiency E55.9 ; Hypomagnesemia E83.42 and Elevated cholesterol with elevated triglycerides E78.2 Mushtaq Katz MD [address] [place] [id number] 05/24/2024 Mushtaq Katz UTI (urinary tract infection) N39.0 Mushtaq Katz MD [address] [place] [id number] 07/30/2024 Mushtaq Katz Anxiety F41.9 Mushtaq Katz MD [address] [place] [address] Drive [address] [place] [id number] 12/30/2023 Mushtaq Katz Osteopenia determine d by x-ray M85.80 ; Essential tremor G25.0 and Elevated cholesterol with elevated triglycerides E78.2 Mushtaq Katz MD [address] [place] [id number] 02/16/2024 Mushtaq Katz Pure hypercholestero lemia E78.00 Mushtaq Katz MD [address] [place] [id number] 07/30/2024 Mushtaq Katz Elevated BUN R79.9 ; Onychomycosis B35.1 and Paronychia of toe of left foot L03.032 Mushtaq Katz MD [address] [place] [id number] 09/01/2023 Mushtaq Katz Anxiety F41.9 Mushtaq Katz MD [address] [place] [id number] 11/13/2023 Mushtaq Katz Anxiety F41.9 Mushtaq Katz MD [address] [place] [id number] 02/10/2024 Mushtaq Katz MD [address] [place] [id number] 03/19/2024 Mushtaq Katz Functional diarrhea K59.1 Mushtaq Katz MD [address] [place] [id number] 05/27/2024 Mushtaq Katz MD [address] [place] [id number] 06/25/2024 Mushtaq Katz Anxiety F41.9 Mushtaq Katz MD [address] [place] [id number] 07/19/2024 Mushtaq Katz ASSESSMENTS Encounter Date Diagnosis Assessment Notes Treatment Notes Treatment Clinical Notes 06/28/2024 Elevated BUN (ICD-10 - R79.9) repeat bun in one month 06/28/2024 History of hematuria (ICD-10 - Z87.448) refused evalution 12/22/2023 Pure hypercholestero lemia (ICD-10 - E78.00) 06/21/2024 Encounter for immunization (ICD-10 - Z23) 06/21/2024 Pure hypercholestero lemia (ICD-10 - E78.00) 05/24/2024 UTI (urinary tract infection) (ICD-10 - N39.0) 07/30/2024 Anxiety (ICD-10 - F41.9) 12/30/2023 Essential tremor (IC D-10 - G25.0) no new treatments. will observe 12/30/2023 Osteopenia determine d by x-ray (ICD-10 - M85.80) does not want to take meds. only slight decrease, will continue to monitor 02/16/2024 Pure hypercholestero lemia (ICD-10 - E78.00) discussed how high her cholesterol was and that she should be on meds. it is risky to stop it and she understands 07/30/2024 Elevated BUN (ICD-10 - R79.9) Spoke with Dr. Parker's office for a sooner appt than October 2024, they will contact patient 07/30/2024 Onychomycosis (ICD-1 0 - B35.1) patient verbalized understanding of medication and directions for use 09/01/2023 Anxiety (ICD-10 - F41.9) 11/13/2023 Anxiety (ICD-10 - F41.9) 03/19/2024 Functional diarrhea (ICD-10 - K59.1) 06/25/2024 Anxiety (ICD-10 - F41.9) 06/28/2024 Anxiety (ICD-10 - F41.9) doi ng well with occcasional use of lorazepam 06/21/2024 Vitamin D deficiency (ICD-10 - E55.9) 12/30/2023 Elevated cholesterol with elevated triglycerides (ICD-10 - E78.2) patient verbalized understanding of change in medication and directions for use 07/30/2024 Paronychia of toe of left foot (ICD-10 - L03.032) 06/28/2024 Vitamin D deficiency (ICD-10 - E55.9) stable, will continue to monitor 06/21/2024 Hypomagnesemia (ICD- 10 - E83.42) 06/28/2024 Pure hypercholestero lemia (ICD-10 - E78.00) not at goal, advised on diet, will contnue current regiment 06/21/2024 Elevated cholesterol with elevated triglycerides (ICD-10 - E78.2) PLAN OF TREATMENT Pending Test Test Name Order Date Electrocardiogram (EKG) 11/06/2015 Electrocardiogram (EKG) 03/12/2019 XR CHEST 2 VIEW PA & LAT 06/11/2012 BONE DENSITY DEXA 06/23/2023 BONE DENSITY DEXA 06/12/2021 MAMMOGRAM DIGITAL BILATERAL SCREEN 11/15 /2022 MAMMOGRAM DIGITAL BILATERAL SCREEN 06/12 Blood Urea Nitrogen 07/30/2024 Creatinine 07/30/2024 Next Appt Details Provider Name:Mushtaq Aguilar ier, 11/30/2024 09:00:00 AM, [address] [place] [address], [address], [place], [place], [phone], Provider Name:Mushtaq Aguilar ier, 12/06/2024 11:00:00 AM, [address] [place] [address], [address], [place], [place], [phone], Provider Name:Mushtaq Aguilar ier, 06/27/2025 09:00:00 AM, [address] [place] [address], Suite [facility], [place], [place], [phone], Provider Name:Mushtaq Aguilar ier, 07/04/2025 01:00:00 PM, [address] [place] [address], Suite [facility], [place], [place], [phone], Insurance Providers Payer Name Payer Address Payer Phone Subscriber Number Group Number Insured Name Patient Relationship to Insured Coverage Start Date Coverage End Date MEDICARE NHIC IFE[address] [place] [address] [id number] Gerry Ros Self - patient is the insured [employer] [facility] [id number] [place] [phone] [id number] GerryRos marti Self - patient is the insured MEDICAL (GENERAL) HISTORY Medical History History ICD Code 06/11/12 - refuses flu vaccine; not sure about pneumonia 09/10/12 - refuses colonoscolp y, pap and rectal; discussed colonoscopy again 10/18/2013 - pt refuses colonoscopy 2021debating; Colonoscopy done 02/12/[address] Hi (need path report for future testing); colonoscopy done 03/12/18 Dr. Troy - repeat 3 years hematuria refuses evaluation. has had li fetime cholesterol ldl 213 in 2012 discussed the need for shingrix 2020. is going to check with insurance
[2024-07-30 15:50] LABS: Blood Urea Nitrogen 23 mg/dL (9-16); Estimated Glomerular Filt Rate > 60
== END 2024-07-30 15:09 | disposition home or self-care (01) ==
LOC: HO.LNP 15:08
PROVIDERS: Visit Provider Internal Medicine
DX: F41.9 Anxiety disorder, unspecified (principal)
CPT/HCPCS: 82565; 84520

== ENCOUNTER 2024-09-21 12:56 | Outpatient (REF) | payer MEDICARE, SELFPAY ==
--- OUTSIDE RECORDS SUMMARY | 2024-09-21 13:51 | XMS_ITS ---
Author Organization Mushtaq Katz MD Address [address] [place], [place] [id number] Care Team Providers Care Electric Meter Repairer Name Role Phone Mushtaq Katz Primary Care Provider [phone] Results Component Value Reference Range Notes Blood Urea Nitrogen Reviewed date:08/05/2024 10:58:32 AM Interpretation: Performing Lab:[facility], [address] [place] [phone] Notes/Report: Blood Urea Nitrogen 23 9-16 mg/dL Creatinine Reviewed date:07/30/2024 04:04:44 PM Interpretation: Performing Lab:[facility], [address] [place] [phone] Notes/Report: Creatinine 0.61 0.5-1.4 mg/dL Estimated Glomerular Filt Rate > 60 Chronic Kidney Disease: Estimated GFR < 60 mL/min/1.73m2 Severe Kidney Disease: Estimated GFR < 15 mL/min/1.73m2 REASON FOR VISIT BUN, CREATININE Encounters Encounter Location Date Provider Diagnosis Mushtaq Katz MD [address] [place], [place] [phone] 07/30/2024 Mushtaq Katz Plan Of Treatment Next Appt Details Provider Name:Mushtaq Aguilar ier, 11/30/2024 09:00:00 AM, [address], [address], [place], [phone], Provider Name:Mushtaq Aguilar ier, 12/06/2024 11:00:00 AM, [address], [address], [place], [id number], Provider Name:Mushtaq Aguilar ier, 06/27/2025 09:00:00 AM, [address], [address], [place], [phone], Provider Name:Mushtaq Aguilar ier, 07/04/2025 01:00:00 PM, [address] [facility], [address], [place], [phone], Progress Notes * Buck HUGHESOB:1940 (84 yo F)Acc No.[id number]:07/30/2024 Progress Note Patient:?SAUL, Ros Provider:?Mushtaq Katz MD :1940???Age:84 Y???Sex:Female D ate:07/30/2024 Address:[address] Subjective: * Chief Complaints: * ???1. BUN, CREATININE. * Medical History:? Objective: * Vitals:? Assessment: Plan: * Treatment: * Labs:? * ?Lab: Blood Urea Nitroge n (Collection Date & Time - 07/30/2024 09:00 AM) ?Lab: Creatinine (Collection Date & Time - 07/30/2024 09:00 AM) * * The named appointment provid er may or may not be the originator of this progress note, and it is not deemed complete until electronically signed by the appointment provider. Sign off status: Pending * Provider:?Mushtaq Katz MD Date:?1 09/30/2023 Generated for Corie wright/Vincenzo/eTransmitting on:?09/21/2024 01:50 PM EST
--- OUTSIDE RECORDS SUMMARY | 2024-09-21 13:51 | XMS_ITS ---
Author Organization Mushtaq Katz MD Address [address] [place] [phone] Care Team Providers Care Unemployment Examiner Name Role Phone Mushtaq Katz Primary Care Provider REASON FOR VISIT RF Lorazepam Medications Medication SIG (Take, Route, Fr equency, Duration) Notes Start Date End Date Status LORazepam 0.5 MG 1 ablet Orally Once a day as needed for 30 days 09/03/2024 Active Encounters Encounter Location Date Provider Diagnosis Mushtaq Katz MD [address] [facility] [address] [place] [phone] 09/03/2024 Mushtaq Katz Anxiety F41.9 Assessments Encounter Date Diagnosis (ICD Code) Assessment Notes Treatment Notes Treatment Clinical Notes Section Notes 09/03/2024 Anxiety (ICD-10 - F41.9) Plan Of Treatment Medication Medication Name Sig Start Date Stop Date Notes LORazepam 0.5 MG 1 ablet Orally Once a day as needed for 30 days 09/03/2024 Next Appt Details Provider Name:Mushtaq jimenez, 11/30/2024 09:00:00 AM, [address], [address], [place], [phone], Provider Name:Mushtaq Aguilar ier, 12/06/2024 11:00:00 AM, [address] [facility], [address], [place], [phone], Provider Name:Mushtaq Aguilar ier, 06/27/2025 09:00:00 AM, [address] [facility], [address], [place], [phone], Provider Name:Mushtaq Aguilar ier, 07/04/2025 01:00:00 PM, [address] [facility], [address], [place], [phone], Progress Notes * Buck HUGHESOB:1940 (84 yo F)Acc No.[id number]:09/03/2024 Patient:?SAUL, Ros :1940???Age:84 Y???Sex:Female Address:[address], [address] * Refills? Refill LORazepam Tablet, 0.5 MG, Orally, 30, 1 ablet, Once a day as needed, 30 days, Refills=0 * true * Date:? Generated for Corie wright/Vincenzo/eTransmitting on:?09/21/2024 01:51 PM EST
--- OUTSIDE RECORDS SUMMARY | 2024-09-21 13:51 | XMS_ITS ---
Author Organization Mushtaq Katz MD Address [address] [place], [place] [phone] Care Team Providers Care Director Blood Bank Name Role Phone Mushtaq Katz Primary Care Provider [phone] Allergies Allergen (clinical drug ingredient) Drug/Non Drug Allergy documented on EMR Reaction Allergy Type Onset Date Status sulfamethoxazole / trimethoprim Bactrim GI upset Drug Allergy Active Shellfish (FN) shrimp (uncoded) throat swelling Allergy Active REASON FOR VISIT r great toenail discoloration x 2 months Medications Medication SIG (Take, Route, Frequency, Duration) Notes Start Date End Date Status Lomotil 2.5-0.025 MG 1 tablet as needed Orally daily as needed for 90 days 03/19/2024 Active Ibuprofen 400 MG take 1 tablet by will as needed every 8 hours Orally Three times a day for 30 days Active Flovent HFA 110 MCG/ACT 1 puff Inhalatio n Twice a day for 30 days 12/31/2012 Not-Taking Cephalexin 500 MG 1 capsule Orally derrick ry 8 hrs for 7 days 07/30/2024 Active Vitamin D3 400 UNIT 1 tablet Orally Once a day for 30 day(s) Not-Taking ProAir RespiClick 108 (90 Base) MCG/ACT 1 puff as needed Inhalation every 4 hrs for 30 days 08/27/2016 Not-Taking Excedrin Extra Strength 250-250-65 MG 2 tablets Orally Once a day for 30 day(s) Not-Taking metroNIDAZOLE 0.75 % 1 application to affected area Externally Twice a day 11/06/2015 Not-Takin g Vitamin D (Cholecalciferol) 1000 UNIT 2 tablets Orally Once a day for 30 day(s) 12/09/2017 Not-Taking LORazepam 0.5 MG 1 ablet Orally Once a day as needed for 30 days 06/25/2024 Active Rosuvastatin Calcium 10 MG 1 tablet Orally Once a day for 90 days 12/30/2023 Active Atorvastatin Calcium 10 MG 1 tablet Orally Once a day for 30 days 07/19/2024 Active Vital Signs Blood pressure systolic 142 mm Hg 07/30/20 24 Blood pressure diastolic 70 mm Hg 024 Height 62 in 07/30/2024 Weight 128 lbs 07/30/2024 BMI 23.41 kg/m2 07/30/2024 Encounters Encounter Location Date Provider Diagnosis Mushtaq Katz MD [address] [place] [address] [address] [place], [place] [phone] 07/30/2024 Mushtaq Katz Elevated BUN R79.9 ; Onychomycosis B35.1 and Paronychia of toe of left foot L03.032 Assessments Encounter Date Diagnosis (ICD Code) Assessment Notes Treatment Notes Treatment Clinical Notes Section Notes 07/30/2024 Elevated BUN (ICD-10 - R79.9) Spoke with Dr. Parker's office for a sooner appt than October 2024, they will contact patient 07/30/2024 Onychomycosis (ICD-10 - B35.1) patient verbalized understanding of medication and directions for use 07/30/2024 Paronychia of toe of left foot (ICD-10 - L03.032) Plan Of Treatment Medication Medication Name Sig Start Date Stop Date Notes Cephalexin 500 MG 1 capsule Orally every 8 hrs for 7 days 07/30/2024 Treatment Notes Assessment Notes Elevated BUN Spoke with Dr. Parker' s office for a sooner appt than October 2024, they will contact patient Onychomycosis patient verbalized u nderstanding of medication and directions for use Next Appt Details Provider Name:Mushtaq Aguilar ier, 11/30/2024 09:00:00 AM, [address], [address], [place], [phone], Provider Name:Mushtaq Aguilar ier, 12/06/2024 11:00:00 AM, [address], [address], [place], [phone], Provider Name:Mushtaq Aguilar ier, 06/27/2025 09:00:00 AM, [address], [address], [place], [phone], Provider Name:Mushtaq Aguilar ier, 07/04/2025 01:00:00 PM, [address], [address], [place], [phone], Progress Notes * SAULEmmanueleDOB:1940 (84 yo F)Acc No.[id number]:07/30/2024 Progress Notes Patient:?Sneha Garrettyce Provider:?Mushtaq Katz MD :1940???Age:84 Y???Sex:Female D ate:07/30/2024 Address:[address] Subjective: * Chief Complaints: * ???R great toenail discolora tion x 2 months * HPI: ???Symptom(s):? patient is a 84 yo female here with complaint of right great toenail discoloration, toe is sore and had a little blood. has been sore since having toe nail pedicure. had some pus drain from it. called the saturator operator and recptions said that if she saw me that maybe they would see her sooner. * ROS:?General/Constitutional:?Comments?had some blood and pus from under her nail.?Denies?Chills.?Denies?Fatigue.?Denies?Fever.?Denies?Headache.?ENT:?Patient denies?decreased sense of smell , any loss of taste , sore throat.?Denies?Sore throat.?Respiratory:?Denies?Cough.?Denies?Shortness of breath at rest.?Denies?Shortness of breath with exertion.?Gastrointestinal:?Denies?Diarrhea.?Denies?Nausea.?Musculoskeletal:?Patient denies?muscle aches.?Peripheral Vascular:?Patient denies?red and blue toes.? * Medical History:? * Surgical History:? * Hospitalization/Major Diagno stic Procedure:? * Medications:?TakingIbuprofen 400 MG Tablet take 1 tablet by mouth as needed every 8 hours Orally Three times a dayLomotil 2.5-0.025 MG Tablet 1 tablet as needed Orally daily as neededLORazepam 0.5 MG Tablet 1 ablet Orally Once a day as neededRosuvastatin Calcium 10 MG Tablet 1 tablet Orally Once a dayAtorvastatin Calcium 10 MG Tablet 1 tablet Orally Once a dayTaking Ibuprofen 400 MG Tablet take 1 tablet by mouth as needed every 8 hours Orally Three times a dayTaking Lomotil 2.5-0.025 MG Tablet 1 tablet as needed Orally daily as neededTaking LORazepam 0.5 MG Tablet 1 ablet Orally Once a day as neededTaking Rosuvastatin Calcium 10 MG Tablet 1 tablet Orally Once a dayTaking Atorvastatin Calcium 10 MG Tablet 1 tablet Orally Once a dayNot-Taking/PRNExcedrin Extra Strength 250-250-65 MG Tablet 2 tablets Orally Once a dayVitamin D3 400 UNIT Tablet 1 tablet Orally Once a dayProAir RespiClick 108 (90 Base) MCG/ACT Aerosol Powder Breath Activated 1 puff as needed Inhalation every 4 hrsVitamin D (Cholecalciferol) 1000 UNIT Tablet 2 tablets Orally Once a daymetroNIDAZOLE 0.75 % Cream 1 application to affected area Externally Twice a dayFlovent HFA 110 MCG/ACT Aerosol 1 puff Inhalation Twice a dayNot-Taking/PRN Excedrin Extra Strength 250-250-65 MG Tablet 2 tablets Orally Once a dayNot-Taking/PRN Vitamin D3 400 UNIT Tablet 1 tablet Orally Once a dayNot- Taking/PRN ProAir RespiClick 108 (90 Base) MCG/ACT Aerosol Powder Breath Activated 1 puff as needed Inhalation every 4 hrsNot-Taking/PRN Vitamin D (Cholecalciferol) 1000 UNIT Tablet 2 tablets Orally Once a dayNot-Taking/PRN metroNIDAZOLE 0.75 % Cream 1 application to affected area Externally Twice a dayNot-Taking/PRN Flovent HFA 110 MCG/ACT Aerosol 1 puff Inhalation Twice a dayDiscontinuedCephalexin 500 MG Tablet 1 tablet Orally twice a dayMedication List reviewed and reconciled with the patientDiscontinued Cephalexin 500 MG Tablet 1 tablet Orally twice a dayMedication List reviewed and reconciled with the patient * Allergies:?shrimp: throat sw ellingBactrim: GI upsetyes[Allergies Verified] Objective: * Vitals:?Ht: 62, Wt:128, BMI: 23.41, BP:142/70. * Examination: ???General Examination: ?GENERAL APPEARANCE:?alert, well hydrated, in no distress.?SKIN:?abnormal rt forearm with a mole about 1/4 inch she says is unchanged.?HEART:?no murmurs, rubs, gallops , regular rate and rhythm.?LUNGS:?no wheezes, rales, rhonchi , good air movement , clear to auscultation bilaterally.?EXTREMITIES:?abnormal with left great toe with onychomycosis.? Assessment: * Assessment: 1.?Elevated BUN - R79.9 (Carmenza mena)?2.?Onychomycosis - B35.1?3.?Paronychia of toe of left foot - L03.032? Plan: * Treatment: 2.?Onychomycosis? Notes: patient verbalized understanding of medication and directions for use?? * Procedure Codes:?12219 VENIP UNCT, ROUTINE* * * Sign off status: Completed true * Provider:?Mushtaq Katz MD Date:?1 09/30/2023 Generated for Corie wright/Vincenzo/eTransmitting on:?09/21/2024 01:51 PM EST History and Physical Notes * HPI (History of Present Illness) Category Sub-Category Detail Notes Category Not es Symptom(s) patient is a 84 yo female here with complaint of right great toenail discoloration, toe is sore and had a little blood. has been sore since having toe nail pedicure. had some pus drain from it. called the saturator operator and recptions said that if she saw me that maybe they would see her sooner Examination Category Sub-Category Detail Notes Category Not es General Examination GENERAL APPEARANCE: alert, w ell hydrated, in no distress HEART: no murmurs, rubs, ga llops , regular rate and rhythm LUNGS: no wheezes, rales, r honchi , good air movement , clear to auscultation bilaterally SKIN: abnormal rt forearm with a mole about 1/4 inch she says is unchanged EXTREMITIES: abnormal with left g reat toe with onychomycosis
--- OUTSIDE RECORDS SUMMARY | 2024-09-21 13:51 | XMS_ITS ---
Author Organization [facility] cornelio [place] Address [address] [place] [address] Care Team Providers Care Electrotyper Name Role Phone Gianna CHAUDHARI, Mushtaq Primary Care Provider Gema Guan Unavailable [phone] Kristy Boateng Unavailable [phone] Allergies Allergen (clinical drug ingredient) Drug/Non Drug Allergy documented on EMR Reaction Allergy Type Onset Date Status sulfamethoxazole / trimethoprim Bactrim Unknown Drug Allergy Active shrimp allergenic extract Shrimp (Diagnostic) swelling Drug Allergy Active REASON FOR VISIT Fungal Nails Medications Medication SIG (Take, Route, Frequency, Duration) Notes Start Date End Date Status Ciclopirox 0.77 % 1 application Comptometrist ally Once a day for 30 days Active Atorvastatin Calcium 10 MG 1 tablet Oral ly Once a day Active Social History Tobacco Use: Social History Observation Description Date Details (start date - stop date) Never Smoker NA - NA Tobacco use other than smoking: Question Answer Notes Are you an other tobacco user? No Tobacco Control (Standard) Question Answer Notes Tobacco use: Nonsmoker Additional Findings: Tobacco non-user Current no nsmoker AUDIT-C (Standard) Question Answer Notes Did you have a drink contain ing alcohol in the past year? Yes How often did you have six o r more drinks on one occasion in the past year? Declined to specify (0 point) How many drinks did you have on a typical day when you were drinking in the past year? Declined to specify (0 point) How often did you have a dri nk containing alcohol in the past year? Declined to specify (0 point) Points 0 Interpretation Negative Vital Signs Blood pressure systolic 120 mm Hg 08/09/19 25 Blood pressure diastolic 80 mm Hg 025 Height 5ft 1inch in 08/09/2024 Weight 128 lbs 08/09/2024 BMI 24.18 kg/m2 08/09/2024 Encounters Encounter Location Date Provider Diagnosis [facility] [address] [place] [address] 08/09/2024 Kristy Boateng Pain in right toe(s) M79.674 ; Onychomycosis B35.1 and Pain in left toe(s) M79.675 Assessments Encounter Date Diagnosis (ICD Code) Assessment Notes Treatment Notes Treatment Clinical Notes Section Notes 08/09/2024 Pain in right toe(s) (ICD-10 - M79.674) 08/09/2024 Onychomycosis (ICD-10 - B35.1) 08/09/2024 Pain in left toe(s) (ICD-10 - M79.675) Plan Of Treatment Medication Medication Name Sig Start Date Stop Date Notes Ciclopirox 0.77 % 1 application Comptometrist ally Once a day for 30 days Next Appt Details Follow Up: 2-3 Months, Reaso n: Provider Name:Kristy Ginalis kacie, 12/29/2024 01:45:00 PM, [address] [place], [address], Progress Notes * Ros HUGHES ADOB:[birth year] (84 yo F)Acc No.[id number]:08/09/2024 Progress Notes Patient:?Ros HUGHES Provider:?Kristy Boateng DPM :1940???Age:84 Y???Sex:Female D ate:08/09/2024 Address:[address], [facility] Pcp:Mushtaq Katz MD Subjective: * Chief Complaints: * ???Fungal Nails * HPI: ???Painful Nails:?Nature:?aching, tender, discolored, thick.?Location:?Both feet.?Duration:?several months.?Course:?worse.?Aggravated by:?shoegear causing difficulty standing/walking.?Treatments:?none.? * ROS:?General/Constitutional:?Nausea?denies.?Vomiting?denies.?Hunger Thirst?denies.?Loss appetite?denies.?Chills?denies.?Fatigue?denies.?Fever?denies.?Night Sweats?denies.?Unexplained weight loss?denies.?Unexplained weight gain?denies.?HEENTM:?Dentures?denies.?Dizziness?denies.?Glasses/contacts?admits.?Retinopathy?de nies.?Blurred/double vision?denies.?TMJ?denies.?Discharge/drainage?denies.?Implants?denies.?Sore throat?denies.?Dental implants?denies.?Hard of hearing ?denies.?Difficulty chewing/swallowing/speaking?denies.?Nose bleeds?denies.?Sore mouth?denies.?Respiratory:?On Oxygen?denies.?Pneumonia/pleurisy?denies.?Bronchitis?denies.?Emphysema?denies.?C oughing?admits.?Cough blood?denies.?Shortness of breath?denies.?Wheezing?denies.?Cardiovascular:?Pacemaker?denies.?MVP?denies.?WPW?denies.?CHF?denies.?Heart attack?denies.?Septal defect?denies.?Rapid beat?denies.?Chest pain ?denies.?Atrial Fib.?denies.?Murmur/Palpitations?denies.?Gastrointestinal:?Hemorrhoids?denies.?Stomach/Abdominal pain?denies.?Dark blood stool?denies.?Irritable bowel ?admits.?Constipation?denies.?Diarrhea?admits.?Hematology:?Swelling?denies.?Clots?denies.?Varicose Veins?denies.?Bruising?denies.?Bleeding problem?denies.?Genitourinary:?Blood urine?denies.?Frequent/Painfu/urination/bladder control?denies.?Kidney stones?denies.?Infection (UTI)?denies.?Nephropathy?denies.?sex trans dis (STD)?denies.?Prostate?denies.?Musculoskeletal:?Hammertoes?denies.?Bunions?denies.?Back Pain?denies.?Muscle Cramps/ Resting?denies.?Muscle cramps / walking?denies.?Generalized aches and pains?denies.?Weakness?denies.?Integ.:?Cerda?denies.?Scars?denies.?Corns/calluses?denies.?Ingrown nails?denies.?Painful nails?denies.?Open Sores?denies.?Rashes?denies.?Neurologic:?Difficulty sleeping?admits.?Brain disorder?denies.?Numbness?denies.?Balance trouble?denies.?Confusion?denies.?Fainting/blackouts?denies.?Tingling?denies.?Tr emors?admits.? * Medical History:? 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 * Social History:?Tobacco Use:?Tobacco use other than smoking?Are you an other tobacco user??No ?Tobacco Control (Standard)?Tobacco use:?Nonsmoker ?Additional Findings: Tobacco non-user?Current nonsmoker ???Drugs/Alcohol:?Drugs?Have you used drugs other than those for medical reasons in the past 12 months??No ???Miscellaneous:?Caffeine: yes, frequency:. ?Children: yes, 1. ?Exercise: yes, golf. ?Marital status: , . ?Occupation: Retired. ???Drug/Alcohol:?AUDIT-C (Standard)?Did you have a drink containing alcohol in the past year??Yes ?How often did you have six or more drinks on one occasion in the past year??Declined to specify (0 point) ?How many drinks did you have on a typical day when you were drinking in the past year??Declined to specify (0 point) ?How often did you have a drink containing alcohol in the past year??Declined to specify (0 point) ?Points?0 ?Interpretation?Negative * Medications:?TakingAtorvasta tin Calcium 10 MG Tablet 1 tablet Orally Once a day Medication List reviewed and reconciled with the patientTaking Atorvastatin Calcium 10 MG Tablet 1 tablet Orally Once a day Medication List reviewed and reconciled with the patient * Allergies:?BactrimShrimp (Di agnostic): swellingyes[Allergies Verified] Objective: * Vitals:?Ht:5ft 1inch, Wt:128 , BMI: 24.18, Shoe size:6.5, BP:120/80mm Hg, Ht-cm: 154.94 cm, Wt-k.06 kg. * Examination: ???Nails: ?NAILS are:?Elongated, overgrown, dystrophic, lytic, greater than 3mm thick, discolored and friable with crumbly malodorous subungual debris, with pain on palpation.?General Examination: ?GENERAL APPEARANCE:?Reveals a pleasant, alert, well-nourished, well- developed, well hydrated individual, who demonstrates proper attention to hygiene/body habitus, and is in no acute distress, Pt serves as own?historian for office visit today.?ORIENTED:?person, place, and time.?Neurological: ?SENSORY:?Neurological exam reveals intact sensorium, pain sensation normal, vibration sensation intact, pinprick sensation is normal in the lower extremities, Pt denies, anesthesia, burning, paresthesia, tingling, B/L.?DEEP TENDON REFLEXES:?Achilles, 2/4, B/L.?Vascular: ?DP PULSES (B):?3/4, B/L.?PT PULSES (B):?3/4, B/L.?CAPILLARY FILL TIME:?immediate, all digits, B/L.?TROPHIC CONDITION-TEXTURE/ELASTICITY/TURGOR/HAIR GROWTH (B):?normal, B/L.?TEMPERTURE GRADIENT (C):?warm to cool, proximal to distal, B/L.?PIGMENTATION:?normal, B/L.?EDEMA (C):?absent, B/L.?Dermatologic: ?SKIN FINDINGS:?Skin exam reveals normal texture, elasticity, and turgor. There are no masses. The interspaces are clear.?Orthopedic: ?MUSCLE STRENGTH:?5/5 all groups in a symmetrical fashion , B/L.? Assessment: * Assessment: 1.?Pain in right toe(s) - M7 9.674???2.?Onychomycosis - B35.1 (Primary)???Specify :Acute problem, Uncomplicated (3)???3.?Pain in left toe(s) - M79.675??? Plan: * Treatment: * Procedure Codes:?G9903 Pt sc rn tbco id as non user * Preventive Medicine:? ??Counseling:?Discussion:?-03: Office or other outpatient visit for the evaluation and management of a new patient, which required a medically appropriate history and/or examination and LOW level of DECISION MAKING for: 1 STABLE ACUTE UNCOMPLICATED PROBLEM, 2 OR MORE MINOR PROBLEMS, OR 1 STABLE CHRONIC PROBLEM, THAT POSE(S) A LOW RISK FOR MORBIDITY/MORTALITY. The visit on the day of the encounter encompassed interpreting the data and educating the patient as to the nature of their condition, treatment options available according to their individual PMH, meds, allergies, and overall health/living conditions, as well as any potential risks or complications that may occur from a failure to adhere to, and participate in, the recommended course of therapy. The discussion included a complete verbal, and/or written explanation of the examination results, any x-rays taken, the proposed diagnosis, and outline of the treatment plan. A schedule for future care needs was also explained. The patient verbalized an understanding of the instructions at this time and agreed to be an active participant in their treatment. If the patient should think of any questions or concerns after the visit, I have encouraged the patient to call the office.?Fungal Nail Counseling:?The patient was counseled on the diagnosis, potential etiologies (including, but not limited to, environmental factors, genetic, immune deficiency), and the multiple treatment options for Onychomycosis. We discussed the risks and benefits of each option from performing no treatment, to ultraviolet light shoe treatment, to laser nail treatment, to applying topical antifungals, to taking oral antifungal medication, to surgical removal of the involved nail(s) with or without performing a matricectomy, or any combination thereof. We discussed the advantages and disadvantages of each of possible treatment and importance for adherence to all the recommended therapies for optimum success. This includes the necessity for weekly emery board self nail home debridements, and control the nail and skin environment as much as possible by only using a fresh, dry pair of shoes/socks each day, as well as keeping the skin as dry as possible through the use of sprays/powders if necessary. The patient was instructed to discard the emery board after use to prevent reinfection of the involved nail(s). We discussed the mycological and visual clinical effectiveness of topical vs oral antifungal treatments as well as each ones potential side effects and/or any patient- specific medication interactions. We discussed the reasons behind the important requirement of regular liver function testing with oral antifungal therapy for safety. Patient questions regarding use, dosage, successful outcomes, blood tests, and possible pharmaceutical interactions were reviewed and the patient verbalized that all answers were clearly understood.? ??Screening/Special Tests:?Fall Risk?Screening:?No falls in the past year ?FALLS: Screening for Future Fall Risk?Have you had any falls with injury in the past year??No * Follow Up:?2-3 Months * Images: * Sign off status: Completed true * Provider:?Kristy Boateng DPM Date:?0 08/09/2024 Generated for Corie wright/Vincenzo/Ant on:?09/21/2024 01:51 PM EST History and Physical Notes * HPI (History of Present Illness) Category Sub-Category Detail Notes Category Not es Painful Nails Aggravated by: shoegear causing difficulty standing/walking Course: worse Duration: several months Location: Both feet Nature: aching, tender, disc olored, thick Treatments: none Examination Category Sub-Category Detail Notes Category Not es Neurological SENSORY: Neurological exa m reveals intact sensorium, pain sensation normal, vibration sensation intact, pinprick sensation is normal in the lower extremities, Pt denies, anesthesia, burning, paresthesia, tingling, B/L DEEP TENDON REFLEXES: Achilles, 2/4, B/L Dermatologic SKIN FINDINGS: Skin exam reveal s normal texture, elasticity, and turgor. There are no masses. The interspaces are clear Orthopedic MUSCLE STRENGTH: 5/5 all groups in a symm etrical fashion , B/L General Examination GENERAL APPEARANCE: Reveals a pleasant, alert, well- nourished, well-developed, well hydrated individual, who demonstrates proper attention to hygiene/body habitus, and is in no acute distress, Pt serves as own historian for office visit today ORIENTED: person, place, and t lin Vascular DP PULSES (B): 3/4, B/L PT PULSES (B): 3/4, B/L CAPILLARY FILL TIME: immediate, all digi ts, B/L TEMPERTURE GRADIENT (C): warm to cool, p roximal to distal, B/L TROPHIC CONDITION-TEXTURE/ELASTICITY/TURGOR/HAIR GROWTH (B): normal, B/L EDEMA (C): absent, B/L PIGMENTATION: normal, B/L Nails NAILS are: Elongated, overg rown, dystrophic, lytic, greater than 3mm thick, discolored and friable with crumbly malodorous subungual debris, with pain on palpation
--- OUTSIDE RECORDS SUMMARY | 2024-09-21 13:51 | XMS_ITS | Patient Health Record ---
Author Organization [facility] cornel[facility] [place] Address [address] [place] [address] Care Team Providers Care Center Consultant Name Role Phone Mushtaq Katz MD Primary Care Provider Gema Guan Unavailable [phone] BoatengKristy nathan Unavailable [phone] Allergies Allergen (clinical drug ingredient) Drug/Non Drug Allergy documented on EMR Reaction Allergy Type Onset Date Status Bactrim Unknown Drug Allergy Active Shrimp (Diagnostic) swelling Drug Allergy Active Reason For Referral No Information Medications Medication SIG (Take, Route, Frequency, Duration) Notes Start Date End Date Status Ciclopirox 0.77 % 1 application Computer Project Manager ally Once a day for 30 days [...] 0 Interpretation Negative Vital Signs Blood pressure diastolic 80 mm Hg 08/09/2024 Height 5ft 1inch in 08/09/2024 Blood pressure systolic 120 mm Hg 08/09/2024 Weight 128 lbs 08/09/2024 BMI 24.18 kg/m2 08/09/2024 Encounters Encounter Location Date Provider Diagnosis [address] [address] 08/09/2024 Kristy Boateng Pain in right toe(s) M79.674 ; Onychomycosis B35.1 and Pain in left toe(s) M79.[address] [facility] [address] 08/10/2024 Kristy Boateng Assessments Encounter Date Diagnosis (ICD Code) Assessment Notes Treatment Notes Treatment Clinical Notes Section Notes 08/09/2024 Pain in right toe(s) (ICD-10 - M79.674) 08/09/2024 Onychomycosis (ICD-10 - B35.1) 08/09/2024 Pain in left toe(s) (ICD-10 - M79.675) Plan Of Treatment Next Appt Details Provider Name:Kristy hester, 12/29/2024 01:45:00 PM, [address] [place] [address], [address], Insurance Providers Payer Name Payer Address Payer Phone Subscriber Number Group Number Insured Name Patient Relationship to Insured Coverage Start Date Coverage End Date Medicare National [employer] [address] [facility] [place] [address] [id number] Ros Garrett Self - patient is the insured 7 [employer] [address] [place] [address] [id number] Ros Grarett Self - patient is the insured Medical (General) History Medical History History ICD Code Mumps Chicken pox Surgical History Surgery Date(Month/Year) catarcts
--- OUTSIDE RECORDS SUMMARY | 2024-09-21 13:52 | XMS_ITS ---
Author Organization [facility] Address [address] [place] [address] Care Team Providers Care Hydraulic Jack Operator Name Role Phone Gianna CHAUDHARI, Mushtaq Primary Care Provider Gema Guan Unavailable [phone] Kristy Boateng Unavailable [phone] REASON FOR VISIT Needs call back from MD Encounters Encounter Location Date Provider Diagnosis [address] [address] 08/10/2024 Kristy Boateng Plan Of Treatment Next Appt Details Provider Name:Kristy hester, 12/29/2024 01:45:00 PM, [address] [place], [address], Progress Notes * Ros HUGHES ADOB:[birth year] (84 yo F)Acc No.[id number]:08/10/2024 Patient:?Ros HUGHES :1940???Age:84 Y???Sex:Female Address[address] [address] * true * Date:? Generated for Printi ng/Faxing/eTransmitting on:?09/21/2024 01:51 PM EST
== END 2024-09-21 12:57 | disposition home or self-care (01) ==
LOC: HO.MAMMO 12:56
PROVIDERS: PCP Internal Medicine; Visit Provider Internal Medicine
DX: Z12.31 Encounter for screening mammogram for malignant neoplasm of breast (principal)
CPT/HCPCS: 77063; 77067

== ENCOUNTER → 2024-09-21 13:00 | Outpatient (BNV) | payer MEDICARE, SELFPAY | PROVIDERS: PCP Internal Medicine; Visit Provider Internal Medicine | DX: Z12.31 Encounter for screening mammogram for malignant neoplasm of breast (principal) | CPT/HCPCS: 77063; 77067 ==

== ENCOUNTER 2024-11-09 15:12 | Outpatient (REF) | payer MEDICARE, SELFPAY ==
--- OUTSIDE RECORDS SUMMARY | 2024-11-09 18:12 | XMS_ITS ---
Author Organization [facility] cornelio [place] Address [address] [place] [address] Care Team Providers Care Revenue Stamper Name Role Phone Gianna CHAUDHARI, Mushtaq Primary Care Provider Gema Guan Unavailable [phone] Kristy Boateng Unavailable [phone] Allergies Allergen (clinical drug ingredient) Drug/Non Drug Allergy documented on EMR Reaction Allergy Type Onset Date Status sulfamethoxazole / trimethoprim Bactrim Unknown Drug Allergy Active shrimp allergenic extract Shrimp (Diagnostic) swelling Drug Allergy Active REASON FOR VISIT Fungal Nails Medications Medication SIG (Take, Route, Frequency, Duration) Notes Start Date End Date Status Ciclopirox 0.77 % 1 application Sheet Metal Layout Mechanic ally Once a day for 30 days [...] 08/09/2024 Encounters Encounter Location Date Provider Diagnosis [facility] [address] [place] [address] 08/09/2024 Kristy Boateng Pain in right toe(s) [...] Date Notes Ciclopirox 0.77 % 1 application Sheet Metal Layout Mechanic ally Once a day for 30 days Next Appt Details Follow Up: 2-3 Months, Reaso n: Provider Name:Kristy Trish hester, 12/29/2024 02:15:00 PM, [address] [place], [address], Progress Notes * Ros HUGHES ADOB:[birth year] (84 yo F)Acc No.[id number]:08/09/2024 Progress Notes Patient:?Ros HUGHES Provider:?Kristy Boateng DPM :1940???Age:84 Y???Sex:Female D ate:08/09/2024 Address:[address], [facility] Pcp:Mushtaq Katz MD Subjective: * Chief Complaints: [...] DPM Date:?0 08/09/2024 Generated for Corie wright/Vincenzo/Ant on:?11/09/2024 12:55 PM EDT History and Physical Notes * HPI (History [...]
--- OUTSIDE RECORDS SUMMARY | 2024-11-09 18:12 | XMS_ITS ---
Author Organization [facility] Address [address] [place] [address] Care Team Providers Care Pmp Project Manager Name Role Phone Gianna CHAUDHARI, Mushtaq Primary Care Provider Gema Guan Unavailable [phone] Kristy Boateng Unavailable [phone] REASON FOR VISIT Needs call back from MD Encounters Encounter Location Date Provider Diagnosis [address] [address] 08/10/2024 Kristy Boateng Plan Of Treatment Next Appt Details Provider Name:Kristy hester, 12/29/2024 02:15:00 PM, [address] [place], [address], Progress Notes * Ros HUGHES ADOB:[birth year] (84 yo F)Acc No.[id number]:08/10/2024 Patient:?Ros HUGHES :1940???Age:84 Y???Sex:Female Address[address] [address] * true * Date:? Generated for Printi ng/Faxing/eTransmitting on:?11/09/2024 12:55 PM EDT
--- OUTSIDE RECORDS SUMMARY | 2024-11-09 18:12 | XMS_ITS ---
Author Organization Mushtaq Katz MD Address [address] [place], [place] [id number] Care Team Providers Care Minesweeping Officer Name Role Phone Mushtaq Katz Primary Care Provider REASON FOR VISIT temp sore throat headache vomiting , fatigue , nonproductive cough, congestion runny nose vomiting diarrhea passed out in her car 10-08-24, Audio [phone] Will test for Covid before the Telehealth Medications Medication SIG (Take, Route, Frequency, Duration) Notes Start Date End Date Status Ibuprofen 400 MG take 1 tablet by will th as needed every 8 hours Orally Three times a day for 30 days Active Lomotil 2.5-0.025 MG 1 tablet as needed Orally daily as needed for 90 days 03/19/2024 Active Cephalexin 500 MG 1 capsule Orally derrick ry 8 hrs for 7 days 07/30/2024 Not-Taking Excedrin Extra Strength 250-250-65 MG 2 tablets Orally Once a day for 30 day(s) Not-Taking metroNIDAZOLE 0.75 % 1 application to affected area Externally Twice a day 11/06/2015 Not-Takin g Flovent HFA 110 MCG/ACT 1 puff Inhalatio n Twice a day for 30 days 12/31/2012 Not-Taking Atorvastatin Calcium 10 MG 1 tablet Orally Once a day for 30 days 07/19/2024 Active Paxlovid (300/100) 20 x 150 MG & 10 x 100MG 3 tablets Orally Twice a day for 5 day(s) 10/11/2024 Active LORazepam 0.5 MG 1 ablet Orally Once a day as needed for 30 days 10/11/2024 Active Vitamin D (Cholecalciferol) 1000 UNIT 2 tablets Orally Once a day for 30 day(s) 12/09/2017 Not-Taking Vitamin D3 400 UNIT 1 tablet Orally Once a day for 30 day(s) Not-Taking ProAir RespiClick 108 (90 Base) MCG/ACT 1 puff as needed Inhalation every 4 hrs for 30 days 08/27/2016 Not-Taking Vital Signs Height 62 in 10/11/2024 Weight 126 lbs 10/11/2024 BMI 23.04 kg/m2 10/11/2024 weight at home is 126 temp 1 00.1 BP not taken at itnw582.1 Encounters Encounter Location Date Provider Diagnosis Mushtaq Katz MD 10 [facility] [address] [place] [phone] 10/11/2024 Mushtaq Katz COVID-19 U07.1 ; Pur e hypercholesterolemia E78.0 and Anxiety F41.9 Assessments Encounter Date Diagnosis (ICD Code) Assessment Notes Treatment Notes Treatment Clinical Notes Section Notes 10/11/2024 COVID-19 (ICD-10 - U07.1) 10/11/2024 Pure hypercholesterolemia (ICD-10 - E78.0) to not take for 3 weeks 10/11/2024 Anxiety (ICD-10 - F41.9) Plan Of Treatment Medication Medication Name Sig Start Date Stop Date Notes Atorvastatin Calcium 10 MG 1 tablet Oral ly Once a day for 30 days 07/19/2024 Paxlovid (300/100) 20 x 150 MG & 10 x 100MG 3 tablets Orally Twice a day for 5 day(s) 10/11/2024 LORazepam 0.5 MG 1 ablet Orally Once a day as needed for 30 days 10/11/2024 Treatment Notes Assessment Notes Pure hypercholesterolemia to not take fo r 3 weeks Next Appt Details Provider Name:Mushtaq Aguilar ielance, 11/30/2024 09:00:00 AM, [address], [address], [place], [phone], Provider Name:Mushtaq Mcgill Lauren jimenez, 12/06/2024 11:00:00 AM, [address], [address], [place], [place], [phone], Provider Name:Mushtaq Mcgill Sravanicrystal barbara, 06/27/2025 09:00:00 AM, [address], [address], [place], [place], [phone], Provider Name:Mushtaq Mcgill Lauren cheekr, 07/04/2025 01:00:00 PM, [address] [place] [address], [address], [place], [place], [phone], Progress Notes * Buck HUGHESOB:1940 (84 yo F)Acc No.[id number]:10/11/2024 Patient:?Ros HUGHES Provider:?Mushtaq Katz MD :1940???Age:84 Y???Sex:Female D ate:10/11/2024 Address:[address] Subjective: * Chief Complaints: * ???Temp sore throat headache vomiting , fatigue , nonproductive cough, congestion runny nose vomiting diarrhea passed out in her car 10-08-24Aud [phone] Will test for Covid before the Telehealth * HPI: ???Symptom(s):?Telehealth?Location of provider rendering services:?[address], [address],?Location of patient:?at address listed in demographics for today's visit,?Patient identification confirmed using:?Name, ,?Telehealth method:?Telephone only. Patient not visible to care provider.,?Consent:?Patient verbally consented to treatment, Patient verbally consented to billing insurance company, Patient informed of any privacy concerns related to method of visit,?Total time spend talking with patient (minutes)?18.?patient is? 84 yo female audio telehealth visit, here for follow up. does have covid. was shopping and felt whoozy in the car. did not remember the ride home now with headache and cough. * ROS:?General/Constitutional:?Admits?Chills.?Admits?Fatigue.?Admits?Fever.?Admits?Headache.?ENT:?Admits?Sore throat.?Respiratory:?Admits?Cough.?Denies?Shortness of breath at rest.?Denies?Shortness of breath with exertion.?Denies?Sputum production.?Gastrointestinal:?Denies?Nausea.?Admits?Vomiting,?Patient had passed out in the car and when she woke up she vomited..? * Medical History:? * Surgical History:? * Hospitalization/Major Diagno stic Procedure:? * Medications:?TakingIbuprofen 400 MG Tablet take 1 tablet by mouth as needed every 8 hours Orally Three times a day Lomotil 2.5-0.025 MG Tablet 1 tablet as needed Orally daily as needed Atorvastatin Calcium 10 MG Tablet 1 tablet Orally Once a day LORazepam 0.5 MG Tablet 1 ablet Orally Once a day as needed Taking Ibuprofen 400 MG Tablet take 1 tablet by mouth as needed every 8 hours Orally Three times a day Taking Lomotil 2.5-0.025 MG Tablet 1 tablet as needed Orally daily as needed Taking Atorvastatin Calcium 10 MG Tablet 1 tablet Orally Once a day Taking LORazepam 0.5 MG Tablet 1 ablet Orally Once a day as needed Not-Taking/PRNCephalexin 500 MG Capsule 1 capsule Orally every 8 hrs Excedrin Extra Strength 250-250-65 MG Tablet 2 tablets Orally Once a day Vitamin D3 400 UNIT Tablet 1 tablet Orally Once a day ProAir RespiClick 108 (90 Base) MCG/ACT Aerosol Powder Breath Activated 1 puff as needed Inhalation every 4 hrs Vitamin D (Cholecalciferol) 1000 UNIT Tablet 2 tablets Orally Once a day metroNIDAZOLE 0.75 % Cream 1 application to affected area Externally Twice a day Flovent HFA 110 MCG/ACT Aerosol 1 puff Inhalation Twice a day Not- Taking/PRN Cephalexin 500 MG Capsule 1 capsule Orally every 8 hrs Not-Taking/PRN Excedrin Extra Strength 250-250-65 MG Tablet 2 tablets Orally Once a day Not-Taking/PRN Vitamin D3 400 UNIT Tablet 1 tablet Orally Once a day Not-Taking/PRN ProAir RespiClick 108 (90 Base) MCG/ACT Aerosol Powder Breath Activated 1 puff as needed Inhalation every 4 hrs Not-Taking/PRN Vitamin D (Cholecalciferol) 1000 UNIT Tablet 2 tablets Orally Once a day Not-Taking/PRN metroNIDAZOLE 0.75 % Cream 1 application to affected area Externally Twice a day Not-Taking/PRN Flovent HFA 110 MCG/ACT Aerosol 1 puff Inhalation Twice a day DiscontinuedRosuvastatin Calcium 10 MG Tablet 1 tablet Orally Once a day Medication List reviewed and reconciled with the patientDiscontinued Rosuvastatin Calcium 10 MG Tablet 1 tablet Orally Once a day Medication List reviewed and reconciled with the patient Objective: * Vitals:?Ht: 62, Wt: 126, BMI :23.04, Wt-k.15. weight at home is 126? temp 100.1? BP? not taken at zqeu190.1. Assessment: * Assessment: 1.?COVID-19 - U07.1 (Primary )???2.?Pure hypercholesterolemia - E78.0???3.?Anxiety - F41.9??? Plan: * Treatment: 2.?Pure hypercholesterolemia ? Notes: to not take for 3 weeks?? 3.?Anxiety? Refill LORazepam Tablet, 0.5 MG, 1 ablet, Orally, Once a day as needed, 30 days, 30, Refills 0.?? * Procedure Codes:? * * Sign off status: Completed true * Provider:?Mushtaq Katz MD Date:?0 10/11/2024 Generated for Corie wright/Vincenzo/Ant on:?11/09/2024 06:11 PM EDT History and Physical Notes * HPI (History of Present Illness) Category Sub-Category Detail Notes Category Not es Symptom(s) Telehealth Location of [facility] rendering services:: [address], [address] patient is 84 yo female audio telehealth visit, here for follow up. does have covid. was shopping and felt whoozy in the car. did not remember the ride home now with headache and cough Location of patient:: at address listed in demographics for today's visit Patient identification confirmed using:: Name, Telehealth method:: Telephone only. Amarilis ent not visible to care provider. Consent:: Patient verbally c onsented to treatment, Patient verbally consented to billing insurance company, Patient informed of any privacy concerns related to method of visit Total time spend talking with patient (m inutes): 18
--- OUTSIDE RECORDS SUMMARY | 2024-11-09 18:12 | XMS_ITS ---
Author Organization [facility] Address [address] [place] [address] Care Team Providers Care Wheel Mill Operator Name Role Phone Mushtaq Katz MD Primary Care Provider Gema Guan [phone] REASON FOR VISIT sooner appt Encounters Encounter Location Date Provider Diagnosis [address] [phone] 10/06/2024 Gema Davenport Plan Of Treatment Next Appt Details Provider Name:Kristy hester, 12/29/2024 02:15:00 PM, [address] [place] [address], [phone], Progress Notes * Ros HUGHES ADOB:[birth year] (84 yo F)Acc No.[id number]:10/06/2024 Progress Notes Patient:?Ros HUGHES Provider:?Gema Davenport DPM :1940???Age:84 Y???Sex:Female D ate:10/06/2024 Address:[address] Pcp:Mushtaq Katz MD Subjective: * Chief Complaints: * ???1. Sooner appt. * Medical History:? Objective: * Vitals:? Assessment: Plan: * Treatment: * Images: * The named appointment provid er may or may not be the originator of this progress note, and it is not deemed complete until electronically signed by the appointment provider. Sign off status: Pending * Provider:?Gema Davenport DPM Date:?12/2024 Generated for Corie wright/Vincenzo/Ant on:?11/09/2024 12:54 PM EDT
--- OUTSIDE RECORDS SUMMARY | 2024-11-09 18:12 | XMS_ITS | Patient Health Record ---
Author Organization [facility] Address [address] [place] [address] Care Team Providers Care Wafer Fabrication Operator Name Role Phone Mushtaq Katz MD Primary Care Provider Gema Guan Unavailable [phone] BoatengKristy nathan Unavailable [phone] Allergies Allergen (clinical drug ingredient) Drug/Non Drug Allergy documented on EMR Reaction Allergy Type Onset Date Status sulfamethoxazole / trimethoprim Bactrim Unknown Drug Allergy Active shrimp allergenic extract Shrimp (Diagnostic) swelling Drug Allergy Active Reason For Referral No Information Medications Medication SIG (Take, Route, Frequency, Duration) Notes Start Date End Date Status Ciclopirox 0.77 % 1 application Digitizer ally Once a day for 30 days [...] 08/09/2024 Encounters Encounter Location Date Provider Diagnosis [address] [address] 08/09/2024 Kristy Boateng Pain in right toe(s) M79.674 ; Onychomycosis B35.1 and Pain in left toe(s) M79.[address] [address] 08/10/2024 Kristy Boateng Assessments Encounter Date Diagnosis (ICD Code) Assessment Notes Treatment Notes Treatment Clinical Notes Section Notes 08/09/2024 Pain in right toe(s) (ICD-10 - M79.674) 08/09/2024 Onychomycosis (ICD-10 - B35.1) 08/09/2024 Pain in left toe(s) (ICD-10 - M79.675) Plan Of Treatment Next Appt Details Provider Name:Kristy hester, 12/29/2024 02:15:00 PM, [address] [place] [address], [phone], Insurance Providers Payer Name Payer Address Payer Phone Subscriber Number Group Number Insured Name Patient Relationship to Insured Coverage Start Date Coverage End Date Medicare National Govt [facility] [address] [place] [address] [id number] Ros Garrett Self - patient is the insured 7 [employer] [address] [place] [address] [id number] Ros Garrett Self - patient is the insured Medical (General) History Medical History History ICD Code Mumps Chicken pox Surgical History Surgery Date(Month/Year) catarcts
--- OUTSIDE RECORDS SUMMARY | 2024-11-09 18:12 | XMS_ITS ---
Author Organization Mushtaq Katz MD Address [address] [place] [phone] Care Team Providers Care Special Events Manager Name Role Phone Mushtaq Katz Primary Care Provider REASON FOR VISIT RF Lorazepam Medications Medication SIG (Take, Route, Fr equency, Duration) Notes Start Date End Date Status LORazepam 0.5 MG 1 ablet Orally Once a day as needed for 30 days 09/03/2024 Active Encounters Encounter Location Date Provider Diagnosis Mushtaq Katz MD 10 [facility] [address] [place] [phone] 09/03/2024 Mushtaq Katz Anxiety F41.9 Assessments Encounter [...] [address], [address], [place], [phone], Provider Name:Mushtaq Aguilar ier, 12/06/2024 11:00:00 AM, [address] [facility], [address], [place], [phone], Provider Name:Mushtaq Aguilar ier, 06/27/2025 09:00:00 AM, [address] [facility], [address], [place], [phone], Provider Name:Mushtaq Aguilar ier, 07/04/2025 01:00:00 PM, [address] [facility], [address], [place], [phone], Progress Notes * Buck HUGHESOB:1940 (84 yo F)Acc No.[id number]:09/03/2024 Patient:?Sneha HUGHESyce :1940???Age:84 Y???Sex:Female Address:[address] [place], [address] * Refills? Refill LORazepam Tablet, 0.5 MG, Orally, 30, 1 ablet, Once a day as needed, 30 days, Refills=0 * true * Date:? Generated for Corie wright/Vincenzo/eTransmitting on:?11/09/2024 06:11 PM EDT
--- OUTSIDE RECORDS SUMMARY | 2024-11-09 18:12 | XMS_ITS ---
Author Organization Mushtaq Katz MD Address [address] [place], [place] [phone] Care Team Providers Care Nursing Specialist Name Role Phone Mushtaq Katz Primary Care Provider Allergies Allergen (clinical drug ingredient) Drug/Non Drug Allergy documented on EMR Reaction Allergy Type Onset Date Status sulfamethoxazole / trimethoprim Bactrim GI upset Drug Allergy Active Shellfish (FN) shrimp (uncoded) throat swelling Allergy Active REASON FOR VISIT uti Medications Medication SIG (Take, Route, Frequency, Duration) [...] a day for 30 days 12/31/2012 Not-Taking metroNIDAZOLE 0.75 % 1 application to affected area Externally Twice a day 11/06/2015 Not-Danielle callejas Vitamin D (Cholecalciferol) 1000 UNIT 2 tablets Orally Once a day for 30 day(s) 12/09/2017 Not-Taking ProAir RespiClick 108 (90 Base) MCG/ACT 1 puff as needed Inhalation every 4 hrs for 30 days 08/27/2016 Not-Taking Vitamin D3 400 UNIT 1 tablet Orally Once a day for 30 day(s) Not-Taking Excedrin Extra Strength 250-250-65 MG 2 tablets Orally Once a day for 30 day(s) Not-Taking Cephalexin 500 MG 1 capsule Orally derrick ry 8 hrs for 7 days 07/30/2024 Not-Taking Atorvastatin Calcium 10 MG 1 tablet Orally Once a day for 30 days 07/19/2024 Active LORazepam 0.5 MG 1 ablet Orally Once a day as needed for 30 days 10/11/2024 Active Vital Signs Blood pressure systolic 126 mm Hg 11/10/19 25 Blood pressure diastolic 60 mm Hg 025 Height 62 in 11/09/2024 Weight 125 lbs 11/09/2024 BMI 22.86 kg/m2 11/09/2024 Encounters Encounter Location Date Provider Diagnosis Mushtaq Katz MD [address] [place] [phone] 11/09/2024 Mushtaq Katz UTI (urinary tract infection) N39.0 Assessments Encounter Date Diagnosis (ICD Code) Assessment Notes Treatment Notes Treatment Clinical Notes Section Notes 11/09/2024 UTI (urinary tract infection) (ICD-10 - N39.0) wants to wait for culture to come in before taking ab. Plan Of Treatment Treatment Notes Assessment Notes UTI (urinary tract infection) wants to w ait for culture to come in before taking ab. Pending Test Test Name Order Date UA ClnCatch+Micro w/rflx Cult 11/09/2024 Next Appt Details Provider Name:Mushtaq jimenez, 11/30/2024 09:00:00 AM, [address] [place] [address], [address], [phone], Provider Name:Mushtaq jimenez, 12/06/2024 11:00:00 AM, [address] [place] [address], [address], [phone], Provider Name:Mushtaq jimenez, 06/27/2025 09:00:00 AM, [address] [place] [address], [phone], Provider Name:Mushtaq Aguilar ier, 07/04/2025 01:00:00 PM, [address], [address], [place], [phone], Progress Notes * Emmanuel HUGHESeDOB:1940 (84 yo F)Acc No.[id number]:11/09/2024 Progress Notes Patient:?Ros HUGHES Provider:?Mushtaq Katz MD :1940???Age:84 Y???Sex:Female D ate:11/09/2024 Address:[address] [place] [address], [facility] Subjective: * Chief Complaints: * ???1. Uti. * HPI: ???Symptom(s):? patient is a 84 yo female here for complaint of UTI. * ROS:?General/Constitutional:?Denies?Chills.?Denies?Fatigue.?Denies?Fever.?Denies?Headache.?ENT:?Patient denies?decreased sense of smell, any loss of taste, sore throat.?Denies?Sore throat.?Respiratory:?Denies?Cough.?Denies?Shortness of breath at rest.?Denies?Shortness of breath with exertion.?Gastrointestinal:?Denies?Diarrhea.?Denies?Nausea.?Genitourinary:?Denies?Abdominal pain/swelling.?Denies?Blood in urine.?Denies?Difficulty urinating.?Admits?Frequent urination.?Denies?Pain in lower back.?Denies?Painful urination.?Musculoskeletal:?Patient denies?muscle aches.?Peripheral Vascular:?Patient denies?red and blue toes.? * Medical History:?06/11/12 - r efuses flu vaccine; not sure about pneumonia, 09/10/12 - refuses colonoscolpy, pap and rectal; discussed colonoscopy again 10/18/2013 - pt refuses colonoscopy ebating; Colonoscopy done 02/12/[address] Hi (need path report for future testing); colonoscopy done 03/12/18 Dr. Troy - repeat 3 years, Hematuria refuses evaluation. has had lifetime, Cholesterol ldl 213 in 2012, Discussed the need for shingrix 2020. is going to check with insurance. * Medications:?Taking Ibuprofe n 400 MG Tablet take 1 tablet by mouth as needed every 8 hours Orally Three times a day , Taking Lomotil 2.5-0.025 MG Tablet 1 tablet as needed Orally daily as needed , Taking Atorvastatin Calcium 10 MG Tablet 1 tablet Orally Once a day , Taking LORazepam 0.5 MG Tablet 1 ablet Orally Once a day as needed , Not-Taking/PRN Cephalexin 500 MG Capsule 1 capsule Orally every 8 hrs , Not-Taking/PRN Excedrin Extra Strength 250-250-65 MG Tablet 2 tablets Orally Once a day , Not-Taking/PRN Vitamin D3 400 UNIT Tablet 1 tablet Orally Once a day , Not-Taking/PRN ProAir RespiClick 108 (90 Base) MCG/ACT Aerosol Powder Breath Activated 1 puff as needed Inhalation every 4 hrs , Not-Taking/PRN Vitamin D (Cholecalciferol) 1000 UNIT Tablet 2 tablets Orally Once a day , Not-Taking/PRN metroNIDAZOLE 0.75 % Cream 1 application to affected area Externally Twice a day , Not-Taking/PRN Flovent HFA 110 MCG/ACT Aerosol 1 puff Inhalation Twice a day , Discontinued Paxlovid (300/100) 20 x 150 MG & 10 x 100MG Tablet Therapy Pack 3 tablets Orally Twice a day , Medication List reviewed and reconciled with the patient * Allergies:?shrimp: throat sw elling, Bactrim: GI upset. Objective: * Vitals:?Ht: 62, Wt: 125, BMI :22.86, BP:126/60, Wt-k.7. * Examination: ???General Examination: ?GENERAL APPEARANCE:?alert, well hydrated, in no distress.?SKIN:?good turgor.?HEART:?regular rate and rhythm, no murmurs, rubs, gallops.?LUNGS:?clear to auscultation bilaterally, good air movement.?ABDOMEN:?soft, nontender, nondistended, no rebound tenderness, no organomegaly.?BACK:?no costovertebral angle tenderness.? Assessment: * Assessment: 1.?UTI (urinary tract infect ion) - N39.0 (Primary)??? Plan: * Treatment: * * The named appointment provid er may or may not be the originator of this progress note, and it is not deemed complete until electronically signed by the appointment provider. Sign off status: Pending * Provider:?Mushtaq Katz MD Date:?0 11/09/2024 Generated for Corie wright/Vincenzo/eTransmitting on:?11/09/2024 06:11 PM EDT History and Physical Notes * HPI (History of Present Illness) Category Sub-Category Detail Notes Category Not es Symptom(s) patient is a 84 yo female here for complaint of UTI Examination Category Sub-Category Detail Notes Category Not es General Examination GENERAL APPEARANCE: alert, w ell hydrated, in no distress HEART: regular rate and rhy thm, no murmurs, rubs, gallops LUNGS: clear to auscultatio n bilaterally, good air movement ABDOMEN: soft, nontender, non distended, no rebound tenderness, no organomegaly SKIN: good turgor BACK: no costovertebral an gle tenderness
== END 2024-11-09 15:13 | disposition home or self-care (01) ==
LOC: HO.LNP 15:12
PROVIDERS: Visit Provider Internal Medicine
DX: N39.0 Urinary tract infection, site not specified (principal)
CPT/HCPCS: 87086

== ENCOUNTER 2024-11-11 15:16 | Outpatient (REF) | payer MEDICARE, SELFPAY ==
[2024-11-11 16:21] LABS: Appearance Urine Clear; Color Urine Yellow; Glucose Urine UA Negative (Negative); Leukocyte Esterase Urine Moderate (2+) (Negative); Nitrite Urine Negative (Negative); Specific Gravity - Urine 1.015 (1.005-1.025); UMIC TRIGGER UACC YES; Urine Blood Small (1+) (Negative); Urine Ketones Negative (Negative); Urine Protein Negative (Neg-Trace)
[2024-11-11 16:29] LABS: Bacteria Urine None Seen (None Seen); Hyaline Casts Urine 0-2 /LPF (0-2); RBC Urine 0-2 /HPF (0-2); Squamous Epithelial Cell Urine 0-2 /HPF (0-2); UACC Culture Trigger YES; WBC Urine 21-50 /HPF (0-5)
--- OUTSIDE RECORDS SUMMARY | 2024-11-11 17:39 | XMS_ITS ---
Author Organization Mushtaq Katz MD Address [address] [place], [place] [address] Care Team Providers Care Superintendent Plant Name Role Phone Mushtaq Katz Primary Care Provider [phone] Results Component Value Reference Range Notes UA ClnCatch+Micro w/rflx Cul t (Not yet reviewed by provider) Interpretation: Performing Lab:[facility], [address] [place] [phone] Notes/Report: Urine, Clean Catch Color Urine Yellow Appearance Urine Clear PH 6.0 5.0-9.0 Glucose Urine UA Negative Negative mg/dL Urine Blood Small (1+) Negative Specific [place] - Urine 1.015 1.005-1.025 Urine Protein Negative Neg-Trace mg/dL Urine Ketones Negative Negative mg/dL Nitrite Urine Negative Negative Leukocyte Esterase Urine Moderate (2+) Negative RBC Urine 0-2 0-2 /HPF WBC Urine 21-50 0-5 /HPF Squamous Epithelial Cell Urine 0-2 0-2 /HPF Bacteria Urine None Seen None Seen Hyaline Casts Urine 0-2 0-2 /LPF REASON FOR VISIT U/A Encounters Encounter Location Date Provider Diagnosis Mushtaq Katz MD [address] [place] [address] [place] [phone] 11/11/2024 Mushtaq Katz UTI (urinary tract infection) N39.0 Assessments Encounter Date Diagnosis (ICD Code) Assessment Notes Treatment Notes Treatment Clinical Notes Section Notes 11/11/2024 UTI (urinary tract infection) (ICD-10 - N39.0) Plan Of Treatment Pending Test Test Name Order Date UA ClnCatch+Micro w/rflx Cult 11/11/2024 Next Appt Details Provider Name:Mushtaq jimenez, 11/30/2024 09:00:00 AM, [address] [place] [address], Suite [facility], [place], [place], [phone], Provider Name:Mushtaq jimenez, 12/06/2024 11:00:00 AM, [address] [place] [address], [place] [address], [place], [place], [phone], Provider Name:Mushtaq jimenez, 06/27/2025 09:00:00 AM, [address] [place] [address], [address], [phone], Provider Name:Mushtaq jimenez, 07/04/2025 01:00:00 PM, [address] [place] [address], [place] [address], [place], [place], [phone], Progress Notes * Emmanuel HUGHESeDOB:1940 (84 yo F)Acc No.[id number]:11/11/2024 Progress Note Patient:Sneha ENCARNACIONyce Provider:?Mushtaq Katz MD :1940???Age:84 Y???Sex:Female D ate:11/11/2024 Address:[address], [place] Subjective: * Chief Complaints: * ???1. U/A. * Medical History:? Objective: * Vitals:? Assessment: * Assessment: 1.?UTI (urinary tract infect ion) - N39.0??? Plan: * Treatment: * * The named appointment provid er may or may not be the originator of this progress note, and it is not deemed complete until electronically signed by the appointment provider. Sign off status: Pending * Provider:?Mushtaq Katz MD Date:?0 11/11/2024 Generated for Corie wright/Vincenzo/Ant on:?11/11/2024 05:39 PM EDT
--- OUTSIDE RECORDS SUMMARY | 2024-11-11 17:39 | XMS_ITS | Patient Health Record ---
Author Organization [facility] cornelio [place] Address [address] [place] [address] Care Team Providers Care Trust Manager Name Role Phone Mushtaq Katz MD Primary Care Provider Gema Guan Unavailable [phone] BoatengKristy nathan Unavailable [phone] Allergies Allergen (clinical drug ingredient) Drug/Non Drug Allergy documented on EMR Reaction Allergy Type Onset Date Status sulfamethoxazole / trimethoprim Bactrim Unknown Drug Allergy Active shrimp allergenic extract Shrimp (Diagnostic) swelling Drug Allergy Active Reason For Referral No Information Medications Medication SIG (Take, Route, Frequency, Duration) Notes Start Date End Date Status Ciclopirox 0.77 % 1 application Garland Machine Operator ally Once a day for 30 days [...] 08/09/2024 Encounters Encounter Location Date Provider Diagnosis [address] [address] 08/09/2024 Kristy Boateng Pain in right toe(s) M79.674 ; Onychomycosis B35.1 and Pain in left toe(s) M79.[address] [address] 08/10/2024 Kristy Boateng Assessments Encounter Date Diagnosis (ICD Code) Assessment Notes Treatment Notes Treatment Clinical Notes Section Notes 08/09/2024 Pain in right toe(s) (ICD-10 - M79.674) 08/09/2024 Onychomycosis (ICD-10 - B35.1) 08/09/2024 Pain in left toe(s) (ICD-10 - M79.675) Plan Of Treatment Next Appt Details Provider Name:Kristy hester, 12/29/2024 02:15:00 PM, [address] [place] [address], [phone], Insurance Providers Payer Name Payer Address Payer Phone Subscriber Number Group Number Insured Name Patient Relationship to Insured Coverage Start Date Coverage End Date Medicare National Govt [facility] [address] [facility] [address] [id number] Ros Garrett Self - patient is the insured 7 [employer] [address] [place] [address] [id number] Ros Garrett Self - patient is the insured Medical (General) History Medical History History ICD Code Mumps Chicken pox Surgical History Surgery Date(Month/Year) catarcts
--- OUTSIDE RECORDS SUMMARY | 2024-11-11 17:39 | XMS_ITS ---
Author Organization Mushtaq Katz MD Address [address] [place], [place] [id number] Care Team Providers Care Cath Lab Name Role Phone Mushtaq Katz Primary Care [...] Location Date Provider Diagnosis Mushtaq Katz MD [address] [place] [id number] 11/09/2024 Mushtaq Katz UTI (urinary tract infection) [...] Details Provider Name:Mushtaq jimenez, 11/30/2024 09:00:00 AM, [address] [place] [address], [address], [id number], Provider Name:Mushtaq jimenez, 12/06/2024 11:00:00 AM, [address] [place] [address], [address], [phone], Provider Name:Mushtaq jimenez, 06/27/2025 09:00:00 AM, [address] [place] [address], [phone], Provider Name:Mushtaq Aguilar ier, 07/04/2025 01:00:00 PM, [address], [address], [place], [phone], Progress Notes * Emmanuel HUGHESeDOB:1940 (84 yo F)Acc No.[id number]:11/09/2024 Progress Notes Patient:?Ros HUGHES Provider:?Mushtaq Katz MD :1940???Age:84 Y???Sex:Female D ate:11/09/2024 Address:[address] [place] [address], [facility] Subjective: * Chief Complaints: * ???1. Uti. [...] MD Date:?0 11/09/2024 Generated for Corie wright/Vincenzo/eTransmitting on:?11/11/2024 05:39 PM EDT History and Physical Notes * [...]
--- OUTSIDE RECORDS SUMMARY | 2024-11-11 17:39 | XMS_ITS ---
Author Organization Mushtaq Katz MD Address [address] [place], [place] [id number] Care Team Providers Care Cigarette Catcher Name Role Phone Mushtaq Katz Primary Care Provider [phone] REASON FOR VISIT temp sore throat headache vomiting , fatigue , nonproductive cough, congestion runny nose vomiting diarrhea passed out in her car 10-08-24, Audio [phone] Will test for Covid before the Telehealth [...] temp 1 00.1 BP not taken at bxla052.1 Encounters Encounter Location Date Provider Diagnosis Mushtaq Katz MD [address] [facility] [address] [place] [phone] 10/11/2024 Mushtaq Katz COVID-19 U07.1 ; Pur [...] 09:00:00 AM, [address], [address], [place], [phone], Provider Name:Mushtaq Mcgill Lauren jimenez, 12/06/2024 11:00:00 AM, [address], [address], [place], [place], [phone], Provider Name:Mushtaq Mcgill Sravanicrystal barbara, 06/27/2025 09:00:00 AM, [address], [address], [place], [place], [phone], Provider Name:Mushtaq Mcgill Lauren cheekr, 07/04/2025 01:00:00 PM, [address] [place] [address], [address], [place], [place], [phone], Progress Notes * Buck HUGHESOB:1940 (84 yo F)Acc No.[id number]:10/11/2024 Patient:?Ros HUGHES Provider:?Mushtaq Katz MD :1940???Age:84 Y???Sex:Female D ate:10/11/2024 Address:[address] Subjective: * Chief Complaints: * ???Temp sore throat headache vomiting , fatigue , nonproductive cough, congestion runny nose vomiting diarrhea passed out in her car 10-08-24Aud [phone] Will test for Covid before the Telehealth [...] 126? temp 100.1? BP? not taken at ybon475.1. Assessment: * Assessment: 1.?COVID-19 - U07.1 (Primary [...] MD Date:?0 10/11/2024 Generated for Corie wright/Vincenzo/Ant on:?11/11/2024 05:39 PM EDT History and Physical Notes * HPI (History of Present Illness) Category Sub-Category Detail Notes Category Not es Symptom(s) Telehealth Location of [facility] rendering services:: [address], [address] patient is 84 yo [...]
--- OUTSIDE RECORDS SUMMARY | 2024-11-11 17:40 | XMS_ITS ---
Author Organization [facility] [place] Address [address] [place] [address] Care Team Providers Care Propagator Name Role Phone Gianna CHAUDHARI, Mushtaq Primary Care Provider Gema Guan Unavailable [phone] Kristy Boateng Unavailable [phone] Allergies Allergen (clinical drug ingredient) Drug/Non Drug Allergy documented on EMR Reaction Allergy Type Onset Date Status sulfamethoxazole / trimethoprim Bactrim Unknown Drug Allergy Active shrimp allergenic extract Shrimp (Diagnostic) swelling Drug Allergy Active REASON FOR VISIT Fungal Nails Medications Medication SIG (Take, Route, Frequency, Duration) Notes Start Date End Date Status Ciclopirox 0.77 % 1 application Bag Maker ally Once a day for 30 days [...] point) Points 0 Interpretation Negative Vital Signs Height 5ft 1inch in 08/09/2024 Weight 128 lbs 08/09/2024 BMI 24.18 kg/m2 08/09/2024 Blood pressure systolic 120 mm Hg 08/09/19 25 Blood pressure diastolic 80 mm Hg 025 Encounters Encounter Location Date Provider Diagnosis [facility] [address] [place] [address] 08/09/2024 Kristy Boateng Pain in right toe(s) [...] Date Notes Ciclopirox 0.77 % 1 application Bag Maker ally Once a day for 30 days Next Appt Details Follow Up: 2-3 Months, Reaso n: Provider Name:Kristy Trish hester, 12/29/2024 02:15:00 PM, [address] [place], [address], Progress Notes * Ros HUGHES ADOB:[birth year] (84 yo F)Acc No.[id number]:08/09/2024 Progress Notes Patient:?Ros HUGHES Provider:?Kristy Boateng DPM :1940???Age:84 Y???Sex:Female D ate:08/09/2024 Address:[address] Pcp:Mushtaq Katz MD Subjective: * Chief Complaints: [...] DPM Date:?0 08/09/2024 Generated for Corie wright/Vincenzo/Ant on:?11/11/2024 05:39 PM [...]
--- OUTSIDE RECORDS SUMMARY | 2024-11-11 17:40 | XMS_ITS | Patient Health Record ---
Author Organization Mushtaq Katz MD Address [address] [place] [phone] Care Team Providers Care Actuary Name Role Phone Mushtaq Katz Primary Care Provider Allergies Allergen (clinical drug ingredient) Drug/Non Drug Allergy documented on EMR Reaction Allergy Type Onset Date Status sulfamethoxazole / trimethoprim Bactrim GI upset Drug Allergy Active Shellfish (FN) shrimp (uncoded) throat swelling Allergy Active Results Component Value Reference Range Notes Liver Panel Reviewed date:12/22/2023 12:44:47 PM Interpretation: Performing Lab:[facility], [address] [place] [phone] Notes/Report: Bilirubin Total 0.9 0.0-1.0 mg/dL Bilirubin Direct 0.3 0.0-0.5 mg/dL Aspartate Amino Transferase 26 5-31 U/L Alanine Aminotransferase 21 0-31 U/L Total Protein 6.8 6.5-8.0 g/dL Albumin Level 4.3 3.5-5.0 g/dL Alkaline Phosphatase 93 39-117 U/L Lipid Panel Reviewed date:12/22/2023 12:37:23 PM Interpretation: Performing Lab:[facility], [address] [place] [phone] Notes/Report: Triglycerides 95 <150 mg/dL Desirable Triglyceride: [...] low results in patients with liver disease. Complete Blood Count Auto Di ff Reviewed date:06/21/2024 12:38:29 PM Interpretation: Performing Lab:[facility], [address] [place] [phone] Notes/Report: White Blood Count 6.5 4.8-10.8 X10*3/uL [...] NRBC Abs Auto 0.000 0.0-0.012 X10*3/uL Comprehensive [place]. Panel Fa st Reviewed date:06/28/2024 03:56:30 PM Interpretation:CBACK 06/28 BUN Performing Lab:[address] [phone] Notes/Report: Sodium 143 135-145 mmol/L Potassium 4.5 [...] Panel Reviewed date:06/21/2024 12:38:11 PM Interpretation: Performing Lab:[facility], [address] [place] [phone] Notes/Report: Triglycerides 78 <150 mg/dL Desirable Triglyceride: [...] Total Reviewed date:06/21/2024 12:45:29 PM Interpretation: Performing Lab:[facility], [address] [place] [phone] Notes/Report: Vitamin D 25-OH Total 33.8 >30 [...] t Reviewed date:06/21/2024 12:46:16 PM Interpretation: Performing Lab:[facility], [address] [place] [phone] Notes/Report: Urine, Clean Catch Color Urine Yellow Appearance Urine Clear PH 5.5 5.0-9.0 Glucose Urine UA Negative Negative mg/dL Urine Blood Small (1+) Negative Specific [place] - Urine 1.020 1.005-1.025 Urine Protein Negative Neg-Trace mg/dL Urine Ketones Negative Negative mg/dL Nitrite Urine Negative Negative Leukocyte Esterase Urine Small (1+) Negative RBC Urine 3-5 0-2 /HPF WBC Urine 0-5 0-5 /HPF Squamous Epithelial Cell Urine 0-2 0-2 /HPF Bacteria Urine None Seen None Seen Hyaline Casts Urine 0-2 0-2 /LPF Blood Urea Nitrogen Reviewed date:08/05/2024 10:58:32 AM Interpretation: Performing Lab:[facility], [address] [place] [phone] Notes/Report: Blood Urea Nitrogen 23 9-16 mg/dL Creatinine Reviewed date:07/30/2024 04:04:44 PM Interpretation: Performing Lab:[facility], [address] [place] [phone] Notes/Report: Creatinine 0.61 0.5-1.4 mg/dL Estimated Glomerular Filt Rate > 60 Chronic Kidney Disease: Estimated GFR < 60 mL/min/1.73m2 Severe Kidney Disease: Estimated GFR < 15 mL/min/1.73m2 UA ClnCatch+Micro w/rflx Cul t Reviewed date:05/27/2024 10:38:34 AM Interpretation: Performing Lab:[facility], [address] [place] [phone] Notes/Report: Urine, Clean Catch Color Urine Yellow Appearance Urine Turbid PH 5.5 5.0-9.0 Glucose Urine UA Negative Negative mg/dL Urine Blood Large (3+) Negative Specific [place] - Urine 1.015 1.005-1.025 Urine Protein 30 (1+) Neg-Trace mg/dL Urine Ketones Negative Negative mg/dL Nitrite Urine Positive Negative Leukocyte Esterase Urine Large (3+) Negative RBC Urine >20 0-2 /HPF WBC Urine >50 0-5 /HPF Squamous Epithelial Cell Urine 3-5 0-2 /HPF Bacteria Urine 4+ None Seen Hyaline Casts Urine 0-2 0-2 /LPF Urine Culture Reviewed date:05/27/2024 12:45:25 PM Interpretation: Performing Lab:[address] [phone] Notes/Report: O:ESCCOL Escherichia coli Urine Culture Quant Urine Culture > 100,000 cfu/mL O:KLEPNE Klebsiella pneumoniae Urine Culture Quant Urine Culture 50,000 to 100,000 cfu/mL Ampicillin 4 Cefazolin <=4 Ceftriaxone <=0.25 Ciprofloxacin <=0.25 Gentamicin <=1 Nitrofurantoin <=16 Trimethoprim/Sulfamethox azole <=20 Ampicillin 16 Cefazolin <=4 Ceftriaxone <=0.25 Ciprofloxacin <=0.25 Gentamicin <=1 Nitrofurantoin 64 Trimethoprim/Sulfamethox azole <=20 Urine Culture Reviewed date:06/22/2024 08:14:16 PM Interpretation: Performing Lab:[facility], [address] [place] [phone] Notes/Report: Urine Culture Report Result Urine Culture 10,000 to 50,000 cfu/ml Urine Culture Mixed bacterial miguel angel a characteristic of Urine Culture urogenital contamination. MM tomosynthesis screening B I Reviewed date:09/27/2024 05:28:20 PM Interpretation: Performing Lab: Notes/Report: [address] [place] [address] Mammography Report Signed Patient: Ros Garrett MR#: [id number] : 1940 Acct:[id number] Age/Sex: 84 / F ADM Date: 09/21/24 Loc: HO.MAMMO Attending Dr: Mushtaq Katz MD Ordering Physician: Mushtaq Katz MD Results: 1Ne gative Date of Service: 09/21/24 Follow Up: 1 Year From [facility] Mammogram Procedure(s): MM tomosynthesis screening BI Accession Number(s): [id number] cc: Mushtaq Katz MD EXAMINATION: MM SCREENING DIGITAL BREAST TOMOSYNTHESIS, BILATERAL CLINICAL INFORMATION: Screening. Asymptomatic. COMPARISON: Mammography: Comparison is made with available priors TECHNIQUE: Digital breast mammography with tomosynthesis is performed in both the craniocaudal and mediolateral oblique views along with computer-aided detection (CAD). FINDINGS: There are scattered areas of fibroglandular [...] target due date for their next mammogram. Electronically signed by: Leida Peña DO 09/27/2024 03:04 PM EST RP Dictated By: Leida Peña DO Signed By: <Electronically signed by Leida Peña DO in OV> 09/27/24 1504 DD/ 1300 TD/TT: 09/21/24 1325 Dietetics Teacher: [facility] [address] [place] [address] Mammography Report Signed Patient: Marnie Garrett MR#: [id number] : 1940 Acct:[id number] Age/Sex: 84 / F ADM Date: 09/21/24 Loc: HO.MAMMO Attending Dr: Mushtaq Katz MD Ordering Physician: Mushtaq Katz MD Results: 1Ne gative Date of Service: 09/21/24 Follow Up: 1 Year From [facility] Mammogram Procedure(s): MM tomosynthesis screening BI Accession Number(s): [id number] cc: Mushtaq Katz MD EXAMINATION: MM SCREENING DIGITAL BREAST TOMOSYNTHESIS, BILATERAL CLINICAL INFORMATION: Screening. Asymptomatic. COMPARISON: Mammography: Comparison is made with available priors TECHNIQUE: Digital breast mammography with tomosynthesis is performed in both the craniocaudal and mediolateral oblique views along with computer-aided detection (CAD). FINDINGS: There are scattered areas of fibroglandular [...] target due date for their next mammogram. Electronically mayra d by: Leida Peña DO 09/27/2024 03:04 PM EST RP Dictated By: Leida Peña DO Signed By: <Electronically signed by Leida Peña DO in OV> 09/27/24 1504 DD/ 1300 TD/TT: 09/21/24 1325 Dietetics Teacher: Urine Culture Reviewed date:11/11/2024 09:34:08 AM Interpretation: Performing Lab:[facility], [address] [place] [phone] Notes/Report: Urine Culture Report Result Urine Culture > 100,000 cfu/ml Urine Culture Mixed bacterial miguel angel a characteristic of Urine Culture urogenital contamination. UA CC w/rflx Micro + Cult (N ot yet reviewed by provider) Interpretation: Performing Lab:[facility], [address] [place] [phone] Notes/Report: Urine, Clean Catch Color Urine Yellow Appearance Urine Clear PH 6.0 5.0-9.0 Glucose Urine UA Negative Negative mg/dL Urine Blood Small (1+) Negative Specific [place] - Urine 1.015 1.005-1.025 Urine Protein Negative Neg-Trace mg/dL Urine Ketones Negative Negative mg/dL Nitrite Urine Negative Negative Leukocyte Esterase Urine Moderate (2+) Negative Reason For Referral Reason please leonie mcwilliams Diagnosis 1 History of hematuria (Z87.448) Diagnosis 2 Family history of bl adder cancer (Z80.52) Diagnosis 3 UTI (urinary tract i nfection) (N39.0) Referral Organization Mushtaq Katz MD Referring Provider First Name Mushtaq Referring Provider Last Name Gianna Referring Provider Speciality Internal M edicine Referred Provider HARSH ASENCIO Referred Provider Specialty Urology General Notes Maricarmen Christine 1 10:35:21 referral info faxed to [facility] for an appt, Maricarmen Christine 06/04/2024 10:04:47 AM > referral mailed to patient Referral Priority Routine Referral Appointment Date 06/23/2024 Medications Medication SIG (Take, Route, Frequency, Duration) Notes Start Date End Date Status Atorvastatin Calcium 10 MG 1 tablet Orally Once a day for 30 days 07/19/2024 Active Lomotil 2.5-0.025 MG 1 tablet as needed Orally daily as needed for 90 days 03/19/2024 Active Ibuprofen 400 MG take 1 tablet by wlil as needed every 8 hours Orally Three [...] 8 hrs for 7 days 07/30/2024 Not-Taking LORazepam 0.5 MG 1 ablet Orally Once a day as needed for 30 days 10/11/2024 Active Immunizations Vaccine Route Administration Date Status Comme nts [...] red Influenza High Dose Unknown 05/20/[address] [facility] Covid Vaccine Unknown 09/07/2020 Administered Covid Vaccine Unknown 09/28/2020 Administered Fluarix Quadrivalent IM Intramuscular 04/27/2021 Administe red SARS-COV-2 Pfizer Unknown 08/24/2021 Administered Influenza High Dose IM Intramuscular 06/11/2022 Administer ed Influenza High Dose IM Intramuscular 06/17/2023 Administer ed Influenza High Dose IM Intramuscular 06/21/2024 Administer ed Fluarix Quadrivalent Unknown 08/27/2016 Refused Shingrix Unknown 12/09/2017 Refused Flu Vaccine Unknown 04/18/2014 Pending Social History Tobacco Use: Social History Observation Description Date Details (start date - stop date) Never Smoker NA - NA Tobacco Use/Smoking Question Answer Notes Patient is a nonsmoker Additional Findings: Tobacco Non-User Cu rrent non-smoker, currently using no form of tobacco Alcohol Screen Question Answer Notes Did you have a drink containing alcohol in the p ast year? No Points 0 Interpretation Negative Problems Problem Type SNOMED Code ICD Code Onset Dates Problem Status W/U Status Risk Notes Problem Pure hypercholesterolemia (573411456) Pure hypercholesterolemia (E78.0) Active confirmed Problem Urinary tract infectious disease (60533608) UTI (urinary tract infection) (N39.0) Active confirmed Problem 32912513 Vitamin D defici ency (E55.9) Active confirmed Problem 90253167 Anxiety (F41.9) Active confirmed Problem 135183595 Hypomagnesemia (E83.42) Active confirmed Problem Essential tremor (517792017) Essential tremor (G25.0) Active confirmed Problem 622962442 Other specified menopausal and perimenopausal disorders (N95.8) Active confirmed Problem 836755318 History of persi stent cough (Z87.09) Active confirmed Problem 165205685 Memory loss (R41.3) Active confirmed Problem 112480015 History of hemat uria (Z87.448) Active confirmed Problem 491759969 Elevated cholest bebo with elevated triglycerides (E78.2) Active confirmed Problem 306319630 Hypoglycemia (E16.2) Active confirmed Problem 89801927 Dysthymia (F34.1) Active confirmed Problem 197589161 Family history o f bladder cancer (Z80.52) Active confirmed Problem 136402168 Pure hypercholesterolemia (E78.00) Active confirmed Problem 201666750 Polyp of ascendi ng colon, unspecified type (D12.2) Active confirmed Problem 593431336 Osteopenia deter mined by x-ray (M85.80) Active confirmed Problem 541489056 Mild cognitive impairment with memory loss (G31.84) Active confirmed Vital Signs Blood pressure diastolic 60 mm Hg 11/09/2024 Height 62 in 11/09/2024 Blood pressure systolic 126 mm Hg 11/09/2024 Weight 125 lbs 11/09/2024 BMI 22.86 kg/m2 11/09/2024 Encounters Encounter Location Date Provider Diagnosis Mushtaq Katz MD [address] [place], [place] [id number] 12/22/2023 Mushtaq Katz Pure hypercholestero lemia E78.00 Mushtaq Katz MD [address] [place] [id number] 06/21/2024 Mushtaq Katz Pure hypercholestero lemia E78.00 ; Encounter for immunization Z23 ; Vitamin D deficiency E55.9 ; Hypomagnesemia E83.42 and Elevated cholesterol with elevated triglycerides E78.2 Mushtaq Katz MD [address] [place] [id number] 07/30/2024 Mushtaq Katz MD [address] [place] [id number] 11/09/2024 Mushtaq Katz UTI (urinary tract infection) N39.0 Mushtaq Katz MD [address] [place] [id number] 12/30/2023 Mushtaq Katz Osteopenia determine d by x-ray M85.80 ; Essential tremor G25.0 and Elevated cholesterol with elevated triglycerides E78.2 Mushtaq Katz MD [address] [place] [id number] 02/16/2024 Mushtaq Katz Pure hypercholestero lemia E78.00 Mushtaq Katz MD [address] [place] [id number] 05/24/2024 Mushtaq Katz UTI (urinary tract infection) N39.0 Mushtaq Katz MD [address] [place] [id number] 06/28/2024 Mushtaq Katz History of hematuria Z87.448 ; Elevated BUN R79.9 ; Anxiety F41.9 ; Vitamin D deficiency E55.9 and Pure hypercholesterolemia E78.00 Mushtaq Katz MD [address] [place] [id number] 07/30/2024 Mushtaq Katz Elevated BUN R79.9 ; Onychomycosis B35.1 and Paronychia of toe of left foot L03.032 Mushtaq Katz MD [address] [place] [id number] 10/11/2024 Mushtaq Katz COVID-19 U07.1 ; Pur e hypercholesterolemia E78.0 and Anxiety F41.9 Mushtaq Katz MD [address] [place] [id number] 11/13/2023 Mushtaq Katz Anxiety F41.9 Mushtaq Katz MD [address] [place] [id number] 02/10/2024 Mushtaq Katz MD [address] [place] [id number] 03/19/2024 Mushtaq Katz Functional diarrhea K59.1 Mushtaq Katz MD [address] [place] [id number] 05/27/2024 Mushtaq Katz MD [address] [place] [id number] 06/25/2024 Mushtaq Katz Anxiety F41.9 Mushtaq Katz MD [address] [place] [id number] 07/19/2024 Mushtaq Katz MD [address] [place] [id number] 09/03/2024 Mushtaq Katz Anxiety F41.9 Assessments Encounter Date Diagnosis (ICD Code) Assessment Notes Treatment Notes Treatment Clinical Notes Section Notes 12/22/2023 Pure hypercholesterolemia (ICD-10 - E78.00) 06/21/2024 Pure hypercholesterolemia (ICD-10 - E78.00) 06/21/2024 Encounter for immunization (ICD-10 - Z23) 11/09/2024 UTI (urinary tract infection) (ICD-10 - N39.0) wants to wait for culture to come in before taking ab. 12/30/2023 Osteopenia determine d by x-ray (ICD-10 - M85.80) does not want to take meds. only slight decrease, will continue to monitor 12/30/2023 Essential tremor (ICD-10 - G25.0) no new treatments. will observe 02/16/2024 Pure hypercholesterolemia (ICD-10 - E78.00) discussed how high her cholesterol was and that she should be on meds. it is risky to stop it and she understands 05/24/2024 UTI (urinary tract infection) (ICD-10 - N39.0) 06/28/2024 History of hematuria (ICD-10 - Z87.448) refused evalution 06/28/2024 Elevated BUN (ICD-10 - R79.9) repeat bun in one month 07/30/2024 Elevated BUN (ICD-10 - R79.9) Spoke with Dr. Parker's office for a sooner appt than October 2024, they will contact patient 07/30/2024 Onychomycosis (ICD-1 0 - B35.1) patient verbalized understanding of medication and directions for use 10/11/2024 COVID-19 (ICD-10 - U07.1) 10/11/2024 Pure hypercholesterolemia (ICD-10 - E78.0) to not take for 3 weeks 11/13/2023 Anxiety (ICD-10 - F41.9) 03/19/2024 Functional diarrhea (ICD-10 - K59.1) 06/25/2024 Anxiety (ICD-10 - F41.9) 09/03/2024 Anxiety (ICD-10 - F41.9) 06/21/2024 Vitamin D deficiency (ICD-10 - E55.9) 12/30/2023 Elevated cholesterol with elevated triglycerides (ICD-10 - E78.2) patient verbalized understanding of change in medication and directions for use 06/28/2024 Anxiety (ICD-10 - F41.9) doing well with occcasional use of lorazepam 07/30/2024 Paronychia of toe of left foot (ICD-10 - L03.032) 10/11/2024 Anxiety (ICD-10 - F41.9) 06/21/2024 Hypomagnesemia (ICD- 10 - E83.42) 06/28/2024 Vitamin D deficiency (ICD-10 - E55.9) stable, will continue to monitor 06/21/2024 Elevated cholesterol with elevated triglycerides (ICD-10 - E78.2) 06/28/2024 Pure hypercholesterolemia (ICD-10 - E78.00) not at goal, advised on diet, will contnue current regiment Plan Of Treatment Pending Test Test Name Order Date Electrocardiogram (EKG) 03/12/2019 Electrocardiogram (EKG) 11/06/2015 XR CHEST 2 VIEW PA & LAT 06/11/2012 BONE DENSITY DEXA 06/23/2023 BONE DENSITY DEXA 06/12/2021 MAMMOGRAM DIGITAL BILATERAL SCREEN 06/12 MAMMOGRAM DIGITAL BILATERAL SCREEN 06/18 UA CC w/rflx Micro + Cult 11/11/2024 UA ClnCatch+Micro w/rflx Cult 11/09/2024 Next Appt Details Provider Name:Mushtaq Aguilar ier, 11/30/2024 09:00:00 AM, [address] [place] [address], [address], [place], [place], [phone], Provider Name:Mushtaq Aguilar ier, 12/06/2024 11:00:00 AM, [address] [place] [address], [address], [place], [place], [phone], Provider Name:Mushtaq Aguilar ier, 06/27/2025 09:00:00 AM, [address] [place] [address], [address], [place], [place], [phone], Provider Name:Mushtaq Aguilar ier, 07/04/2025 01:00:00 PM, [address] [place] [address], [address], [place], [place], [phone], Insurance Providers Payer Name Payer Address Payer Phone Subscriber Number Group Number Insured Name Patient Relationship to Insured Coverage Start Date Coverage End Date MEDICARE NHIC IFEANYI [address] [place] [address] [id number] Ros Garrett Self - patient is the insured MEDEX BCBS OF [facility] [address] [place] [phone] [id number] Ros Garrett Self - patient is the insured Medical (General) History Medical History History ICD Code 06/11/12 - [...]
--- OUTSIDE RECORDS SUMMARY | 2024-11-11 17:40 | XMS_ITS ---
Author Organization [facility] Address [address] [place] [address] Care Team Providers Care Toggle Press Operator Name Role Phone Mushtaq Katz MD Primary Care Provider Gema Guan [phone] REASON FOR VISIT sooner appt Encounters Encounter Location Date Provider Diagnosis [address] [address] 10/06/2024 Gema Davenport Plan Of Treatment Next Appt Details Provider Name:Kristy hester, 12/29/2024 02:15:00 PM, [address] [place] [address], [phone], Progress Notes * Ros HUGHES ADOB:[birth year] (84 yo F)Acc No.[id number]:10/06/2024 Progress Notes Patient:?Ros HUGHES Provider:?Gema Davenport DPM :1940???Age:84 Y???Sex:Female D ate:10/06/2024 Address[address] Pcp:Mushtaq Katz MD Subjective: * Chief Complaints: [...] Davenport DPM Date:?12/2024 Generated for Corie wright/Vincenzo/Ant on:?11/11/2024 05:39 PM EDT
--- OUTSIDE RECORDS SUMMARY | 2024-11-11 17:40 | XMS_ITS ---
Author Organization [facility] Address [address] [place] [address] Care Team Providers Care Computer Education Professor Name Role Phone Gianna CHAUDHARI, Mushtaq Primary Care Provider Gmea Guan Unavailable [phone] Kristy Boateng Unavailable [phone] REASON FOR VISIT Needs call back from MD Encounters Encounter Location Date Provider Diagnosis [address] [address] 08/10/2024 Kristy Boateng Plan Of Treatment Next Appt Details Provider Name:Kristy hester, 12/29/2024 02:15:00 PM, [address] [place], [phone], Progress Notes * Ros HUGHES ADOB:[birth year] (84 yo F)Acc No.[id number]:08/10/2024 Patient:?Ros HUGHES :1940???Age:84 Y???Sex:Female Address[address] [address] * true * Date:? Generated for Printi ng/Faxing/eTransmitting on:?11/11/2024 05:40 PM EDT
== END 2024-11-11 15:17 | disposition home or self-care (01) ==
LOC: HO.LAB 15:16
PROVIDERS: PCP Internal Medicine; Visit Provider Internal Medicine
DX: N39.0 Urinary tract infection, site not specified (principal)
CPT/HCPCS: 81001; 87086

== ENCOUNTER 2024-11-30 11:56 | Outpatient (REF) | payer MEDICARE, SELFPAY ==
[2024-11-30 12:21] LABS: Alanine Aminotransferase 26 U/L (0-31); Alkaline Phosphatase 80 U/L (39-117); Aspartate Amino Transferase 40 U/L (5-31); Bilirubin Direct 0.2 mg/dL (0.0-0.5); Bilirubin Total 0.9 mg/dL (0.0-1.0); Cholesterol 204 mg/dL (<200); HDL Cholesterol 53 mg/dL (>40); LDL Cholesterol Calculated 126 mg/dL (<100); Total Protein 6.7 g/dL (6.5-8.0); Triglycerides 129 mg/dL (<150)
[2024-11-30 13:35] LABS: Reflex LDLD? No
--- OUTSIDE RECORDS SUMMARY | 2024-11-30 14:02 | XMS_ITS | Patient Health Record ---
Author Organization [facility] [place] Address [address] [place] [address] Care Team Providers Care Ambulatory Care Coordinator Name Role Phone Mushtaq Katz MD Primary Care Provider Kristy Sahu Unavailable [phone] KoltonGema hays Unavailable [phone] Allergies Allergen (clinical drug ingredient) Drug/Non Drug Allergy documented on EMR Reaction Allergy Type Onset Date Status sulfamethoxazole / trimethoprim Bactrim Unknown Drug Allergy Active shrimp allergenic extract Shrimp (Diagnostic) swelling Drug Allergy Active Reason For Referral No Information Medications Medication SIG (Take, Route, Frequency, Duration) Notes Start Date End Date Status Ciclopirox 0.77 % 1 application Foreign Policy Officer ally Once a day for 30 days [...] 08/09/2024 Encounters Encounter Location Date Provider Diagnosis [address] [address] 08/09/2024 Kristy Boateng Pain in right toe(s) M79.674 ; Onychomycosis B35.1 and Pain in left toe(s) M79.[address] [address] 08/10/2024 Kristy Boateng Assessments Encounter Date Diagnosis (ICD Code) Assessment Notes Treatment Notes Treatment Clinical Notes Section Notes 08/09/2024 Pain in right toe(s) (ICD-10 - M79.674) 08/09/2024 Onychomycosis (ICD-10 - B35.1) 08/09/2024 Pain in left toe(s) (ICD-10 - M79.675) Plan Of Treatment Next Appt Details Provider Name:Kristy hester, 12/29/2024 02:15:00 PM, [address] [place] [address], [phone], Insurance Providers Payer Name Payer Address Payer Phone Subscriber Number Group Number Insured Name Patient Relationship to Insured Coverage Start Date Coverage End Date Medicare National Govt [facility] [address] [facility] [place] [address] [id number] Ros Garrett Self - patient is the insured 7 [employer]ex Blue Shield [address] [place] [address] [id number] Ros Garrett Self - patient is the insured Medical (General) History Medical History History ICD Code Mumps Chicken pox Surgical History Surgery Date(Month/Year) catarcts
--- OUTSIDE RECORDS SUMMARY | 2024-11-30 14:02 | XMS_ITS ---
Author Organization [facility] Address [address] [place] [address] Care Team Providers Care Sales Intern Name Role Phone Gianna CHAUDHARI, Mushtaq Primary Care Provider Kristy Sahu Unavailable [phone] Gema Davenport [phone] REASON FOR VISIT sooner appt Encounters Encounter Location Date Provider Diagnosis [address] [address] 10/06/2024 Gema Davenport Plan Of Treatment Next Appt Details Provider Name:Kristy hester, 12/29/2024 02:15:00 PM, [address] [place] [address], [phone], Progress Notes * Ros HUGHES ADOB:[birth year] (84 yo F)Acc No.[id number]:10/06/2024 Progress Notes Patient:?Ros HUGHES Provider:?Gema Davenport DPM :1940???Age:84 Y???Sex:Female D ate:10/06/2024 Address:[address] [place] Pcp:Mushtaq Katz MD Subjective: * Chief Complaints: * ???1. Sooner appt. * Medical History:? Objective: * Vitals:? Assessment: Plan: * Treatment: * Images: * The named appointment provid er may or may not be the originator of this progress note, and it is not deemed complete until electronically signed by the appointment provider. Sign off status: Pending * Provider:Ahmet Davenport DPM Date:?12/2024 Generated for Corie wright/Vincenzo/Ant on:?11/30/2024 02:02 PM EDT
--- OUTSIDE RECORDS SUMMARY | 2024-11-30 14:02 | XMS_ITS ---
Author Organization [facility] [place] Address [address] [place] [id number] Care Team Providers Care Carpet Inspector Name Role Phone Gianna CHAUDHARI, Mushtaq Primary Care Provider Kristy Sahu Unavailable [phone] Allergies Allergen (clinical drug ingredient) Drug/Non Drug Allergy documented on EMR Reaction Allergy Type Onset Date Status sulfamethoxazole / trimethoprim Bactrim Unknown Drug Allergy Active shrimp allergenic extract Shrimp (Diagnostic) swelling Drug Allergy Active REASON FOR VISIT Fungal Nails Medications Medication SIG (Take, Route, Frequency, Duration) Notes Start Date End Date Status Ciclopirox 0.77 % 1 application Firer Helper ally Once a day for 30 days [...] 025 Encounters Encounter Location Date Provider Diagnosis [facility] [place] [address] [place] [address] 08/09/2024 Kristy Boateng Pain in right toe(s) [...] Date Notes Ciclopirox 0.77 % 1 application Firer Helper ally Once a day for 30 days Next Appt Details Follow Up: 2-3 Months, Reaso n: Provider Name:Kristy Chambers kacie, 12/29/2024 02:15:00 PM, [address] [place] [address], [phone], Progress Notes * Ros HUGHES ADOB:[birth year] (84 yo F)Acc No.[id number]:08/09/2024 Progress Notes Patient:?Ros HUGEHS Provider:?Kristy Boateng DPM :1940???Age:84 Y???Sex:Female D ate:08/09/2024 Address:[address] Pcp:Mushtaq Katz MD Subjective: * Chief Complaints: [...] DPM Date:?0 08/09/2024 Generated for Corie wright/Vincenzo/Ant on:?11/30/2024 02:02 PM EDT History and Physical Notes * [...]
--- OUTSIDE RECORDS SUMMARY | 2024-11-30 14:02 | XMS_ITS ---
Author Organization [facility] Address [address] [place] [address] Care Team Providers Care Field Support Rep Name Role Phone Gianna CHAUDHARI, Mushtaq Primary Care Provider Kristy Sahu [phone] REASON FOR VISIT Needs call back from MD Encounters Encounter Location Date Provider Diagnosis [address] [address] 08/10/2024 Kristy Boateng Plan Of Treatment Next Appt Details Provider Name:Kristy hester, 12/29/2024 02:15:00 PM, [address] [place], [address], Progress Notes * Ros HUGHES ADOB:[birth year] (84 yo F)Acc No.[id number]:08/10/2024 Patient:?Ros HUGHES :1940???Age:84 Y???Sex:Female Address:[address] [place] [address] * true * Date:? Generated for Sissyi kyle/Vincenzo/eTransmitting on:?11/30/2024 02:02 PM EDT
== END 2024-11-30 11:57 | disposition home or self-care (01) ==
LOC: HO.LNP 11:56
PROVIDERS: Visit Provider Internal Medicine
DX: E78.00 Pure hypercholesterolemia, unspecified (principal)
CPT/HCPCS: 80061; 80076

== ENCOUNTER 2025-06-27 11:32 | Outpatient (REF) | payer MEDICARE, SELFPAY ==
[2025-06-27 11:36] LABS: MANUAL DIFF FLAG NO
[2025-06-27 11:43] LABS: Hematocrit 44.6 % (37.0-47.0); Hemoglobin 14.3 g/dl (12.0-16.0); Imm Gran Abs Auto 0.02 X10*3/uL (0.00-0.03); Imm Gran Pct Auto 0.3 % (0.0-0.4); Lymphocytes Absolute Auto 1.5 X10*3/uL (1.2-4.9); Mean Corpuscular HGB Conc 32.1 g/dl (31.0-35.0); Mean Corpuscular Hemoglobin 28.3 pg (27.0-33.0); Mean Corpuscular Volume 88.3 fL (80.0-98.0); NRBC Abs Auto 0.000 X10*3/uL (0.0-0.012); NRBC Pct Auto 0.0 /100WBC (0.0-0.2); Platelet Count 216 X10*3/uL (160-400); Red Blood Count 5.05 X10*6/uL (4.20-5.50); White Blood Count 5.8 X10*3/uL (4.8-10.8)
[2025-06-27 11:50] LABS: Appearance Urine Clear; Glucose Urine UA Negative (Negative); PH 6.0 (5.0-9.0); Specific Gravity - Urine >= 1.030 (1.005-1.025); UMIC TRIGGER UACC YES
[2025-06-27 15:05] LABS: Alanine Aminotransferase 18 U/L (0-31); Albumin Level 4.2 g/dL (3.5-5.0); Alkaline Phosphatase 75 U/L (39-117); Anion Gap 12 (12-20); Aspartate Amino Transferase 32 U/L (5-31); Blood Urea Nitrogen 29 mg/dL (9-16); Calcium 9.9 mg/dL (8.4-10.2); Carbon Dioxide 25 mmol/L (22-29); Chloride 110 mmol/L (96-108); Cholesterol 188 mg/dL (<200); Estimated Glomerular Filt Rate > 60; HDL Cholesterol 54 mg/dL (>40); Potassium 4.2 mmol/L (3.3-5.1); Sodium 143 mmol/L (135-145); Total Protein 6.7 g/dL (6.5-8.0); Triglycerides 89 mg/dL (<150)
--- OUTSIDE RECORDS SUMMARY | 2025-06-27 15:21 | XMS_ITS | Clinical Summary ---
Author Organization [facility] Address [address] [place] [address] Phone Care Team Providers Care Chopper Feeder Name Role Phone Mushtaq Katz MD Primary Care Provider Encounters Date Type Department Care Team Description 04/21/2025 Telephone Gastro[facility]ology - [place] [facility] [address] [facility] [address] [place] [address] Cyn Robles MD from Last 3 Months Medical History Medical History Date Comments Scoliosis (and kyphoscoliosi s), idiopathic 06/27/2006 DX:Scoliosis (and kyphoscoli osis), idiopathic IBS (irritable bowel syndrome) 06/27/2008 D X:IBS (irritable bowel syndrome) Mixed hyperlipidemia 06/27/2008 DX:Mixed hy perlipidemia; COMMENT: Has declined medication Family history of bladder cancer DX:Family history of bladder cancer History of hematuria DX:History of hematuria History of persistent cough DX:H istory of persistent cough Polyp of ascending colon DX:Poly p of ascending colon Osteopenia determined by x-ray D X:Osteopenia determined by x-ray Memory loss DX:Memory loss Other specified menopausal a nd perimenopausal disorders DX:Other specified menopausa l and perimenopausal disorders Hypomagnesemia DX:Hypomagnesemi a Hypoglycemia DX:Hypoglycemia Anxiety DX:Anxiety Family History Medical History Relation Name Comments Lung cancer Father Lung cancer Mother Relation Name Status Comments Father lung cancer Mother lung cancer Sister Alive bladder cancer Social History Tobacco Use Types Packs/Day Years Used Date Smoking Tobacco: Never Smokeless Tobacco: Never Alcohol Use Standard Drinks/Week Comments Not Asked 0 (1 standard drink = 0.6 oz pur e alcohol) Comments Unknown Sex and Gender Information Value Date Recorded Sex Assigned at Not on file Legal Sex Female 9:48 PM EST Gender Identity Not on file Sexual Orientation Not on file Obstetrics History Plan of Treatment Health Maintenance Due Date Last Done Comments DTaP,Tdap,and Td Vaccines (1 - Tdap) 1961 Zoster Vaccines (1 of 2) 1992 Pneumococcal Vaccine: 50+ Years (2 of 2 - PCV) 04/28/2010 04/28/2009, 06/27/2008 RSV Immunization Adult Patients (1 - 1-dose 75+ series) 2017 Depression Screening 08/04/2024 COVID-19 Vaccine (1 - 2024- season) 2025 Influenza Vaccine (#1) 2025 0, 04/28/2009, 04/28/2008, Additional history exists Cholesterol Screening (Lipid Panel) 04/21/2025 Falls Risk Assessment 04/21/2025 Medicare Annual Wellness Visit 04/21/2025 Osteoporosis Screening (Bone Density Screening) 04/21/2025 Social Influencers of Health Screening 04/21/2025 HIB Vaccines Aged Out No longer eligi ble based on patient's age to complete this topic HPV Vaccines Aged Out No longer eligi ble based on patient's age to complete this topic Hepatitis A Vaccines Aged Out No long er eligible based on patient's age to complete this topic Hepatitis B Vaccines Aged Out No long er eligible based on patient's age to complete this topic IPV Vaccines Aged Out No longer eligi ble based on patient's age to complete this topic MMR Vaccines Aged Out No longer eligi ble based on patient's age to complete this topic Meningococcal ACWY Vaccine Aged Out N o longer eligible based on patient's age to complete this topic Meningococcal B Vaccine Aged Out No l onger eligible based on patient's age to complete this topic RSV Immunization Patients Under 20 months Aged Out No longer eligible based on patient's age to complete this topic Varicella Vaccines Aged Out No longer eligible based on patient's age to complete this topic Insurance [facility]ICARE [facility] Care Teams Chopper Feeder Relationship Specialty Start Date End Date Mushtaq Katz MD [address] [place] [address] [place] [id number] PCP - General Internal Medicine 07/22/12
== END 2025-06-27 11:33 | disposition home or self-care (01) ==
LOC: HO.LNP 11:32
PROVIDERS: Visit Provider Internal Medicine
DX: E78.00 Pure hypercholesterolemia, unspecified (principal); E55.9 Vitamin D deficiency, unspecified; E16.2 Hypoglycemia, unspecified
CPT/HCPCS: 80053; 80061; 81001; 82306; 85025